=== PATIENT | female | born 2005 | race Two or more races ===

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

== ENCOUNTER 2024-03-06 22:38 | Emergency (ER) | payer OTHER, SELFPAY ==
--- NOTE | 2024-03-06 | ECG_ITS ---
Test Reason : SYNCOPE Blood Pressure : / mmHG Vent. Rate : 077 BPM Atrial Rate : 077 BPM P-R Int : 132 ms QRS Dur : 080 ms QT Int : 366 ms P-R-T Axes : 002 066 004 degrees QTc Int : 414 ms Sinus rhythm with sinus arrhythmia Otherwise normal ECG When compared with ECG of 02-OCT-2019 13:50, No significant changes seen Referred By: Generic ED Physician Electronically Signed By:INÉS JOHN MD
[2024-03-06 22:41] VITALS: BP 152/80; PULSE 86; RESP 14
--- NOTE | 2024-03-06 22:56 | ED.GENADULT ---
HPI - General Adult General Chief complaint: Syncope Stated complaint: syncope Time Seen by Provider: 03/06/24 22:56 Source: patient Mode of arrival: ambulatory Limitations: no limitations History of Present Illness HPI narrative: Patient is a 18-year-old female with history of GERD, anxiety and depression presenting to the emergency department after episode of syncope prior to arrival. States that she felt lightheaded for the past several hours. States she then felt nauseous and went to the bathroom to vomit but became lightheaded so she laid down on the ground where she had a syncopal episode. She denies any head strike. States that she has had her period with heavy vaginal bleeding for the past month. 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 Was recently started on OCPs to control this on Tuesday. States she did take a test prior to starting the OCPs which was negative. She does report lower abdominal cramping. Denies any diarrhea. Denies any hematochezia or melena. Reports emesis was nonbloody, nonbilious. Denies fevers. Denies chest pain or palpitations. MD complaint: syncope Onset (ago): hour(s) Radiation: abdomen Severity: mild Quality: other (cramping) Pain Consistency: colicky Associated symptoms: nausea/vomiting Treatments prior to arrival: none Related Data Home Medications ?Medication ?Instructions ?Recorded ?Confirmed fluoxetine 10 mg tablet 20 mg PO DAILY 09/29/23 09/29/23 Previous Rx's ?Medication ?Instructions ?Recorded hydroxyzine HCl 25 mg tablet 25 mg PO Q4H PRN anxiety #30 tabs 06/30/23 omeprazole 20 mg capsule,delayed 20 mg PO DAILY #30 caps 09/29/23 release desogestrel 0.15 mg-ethinyl 1 tab PO DAILY 90 days #90 tabs 12/28/23 estradiol 0.03 mg tablet (Apri) cefuroxime axetil 500 mg tablet 500 mg PO BID #10 tabs 03/07/24 Allergies Allergy/AdvReac Type Severity Reaction Status Date / Time No Known Allergies Allergy Verified 03/06/24 22:43 Review of Systems Review of Systems: As per HPI. Yes all other systems are reviewed and are negative Constitutional: Constitutional: Reports as per HPI [facility] Past Medical History Medical History Acne vulgaris Renal calculi Surgical History No pertinent past surgical history Family History Family History Mother No problems noted. Sister No problems noted. Maternal Grandmother Breast cancer Cervical cancer Social History Social History Household Members: Family Housing: House Alcohol intake: never Patient Tobacco Use Status: Never used Tobacco Advance Directives: No Advance Directives Information Provided: Yes Do you have a plan to hurt others: No Plan service: No Current occupational status: employed Gender identity: Female Cognitive needs: No Hearing needs: No Vision needs: No Physical Exam ED Vital Signs: Vital Signs - 24 hr 03/06/24 22:41 03/07/24 00:01 03/07/24 00:01 Temperature 97.7 F Pulse Rate 86 56 73 Respiratory Rate 14 18 Blood Pressure 152/80 H 96/58 L 104/75 Pulse Oximetry 100 Oxygen Delivery Method Room Air 03/07/24 00:01 03/07/24 00:01 03/07/24 01:22 Temperature Pulse Rate 71 73 68 Respiratory Rate 16 Blood Pressure 117/64 104/75 114/59 L Pulse Oximetry 100 Oxygen Delivery Method Room Air BMI result Body Mass Index 30.0 Vital signs have been reviewed and appear to be correct. Blood pressure normal. Heart rate normal. Respiratory rate normal. Temperature normal. Oxygen saturation normal. Const General: cooperative, healthy appearing and no acute distress Orientation/consciousness: oriented to person, oriented to place, oriented to time and patient oriented x3 Limitations: no limitations [facility] Head: Yes normocephalic and Yes atraumatic Ears: external ears normal General nose exam: Normal external nose present Face and sinus: Yes face symmetric Mouth: oropharynx normal and moist mucous membranes Throat: Yes uvula midline Eyes Pupils: Equal, round and reactive pupils present Neck Neck: Yes normal visual inspection and Yes supple Resp Effort & Inspection: normal respiratory effort and able to speak in complete sentences Auscultation: clear to auscultation bilaterally Cardio Rate: regular rate Rhythm: regular rhythm Heart sounds: S1 normal heart sound present and S2 normal heart sound present GI Palpation (GI): Soft to palpation and nontender Auscultation: normoactive bowel sounds General: Yes no CVA tenderness Back/Spine/Pelvis Back: no CVA tenderness Skin General skin exam: elasticity normal and turgor normal Neuro General: oriented to person, oriented to place, oriented to time, patient oriented x3, moves all extremities, no focal motor deficits and CN's II-XI intact bilaterally Cranial nerves: Yes Equal, round and reactive pupils present Cognition (Neuro): normal cognition Extrem General: Yes full ROM, Yes no pedal edema and Yes no calf tenderness Psych Mental Status: mental status grossly normal Affect: normal affect Thought process: Normal thought process present Medications Administered Discontinued Medications Generic Name Dose Route Start Last Admin Trade Name Freq PRN Reason Stop Dose Admin Sodium Chloride 1,000 mls @ 999 mls/hr 03/07/24 00:30 03/07/24 00:38 Ns IV 03/07/24 01:30 999 mls/hr .Q1H1M HEMAL Administration Ondansetron HCl 4 mg 03/07/24 00:19 03/07/24 00:37 Ondansetron Hcl 4 Mg/2 Ml Vial IVPUSH 03/07/24 00:20 4 mg ONCE ONE Administration Medical Decision Making Medical Decision Making MDM Narrative: Patient is a 18-year-old female with history of GERD, anxiety and depression presenting to the emergency department after episode of syncope prior to arrival. On exam patient is awake, A+Ox3, VS WNL, afebrile, normal neurological exam without focal deficits, physical exam findings as above. Given reported symptoms and physical exam findings, initial differential includes anemia, cardiac arrhythmia, electrolyte abnormality, , ectopic, UTI, dehydration, orthostatic intolerance. Plan: EKG, labs, UA Labs notable for no leukocytosis, no anemia, no significant electrolyte abnormalities, mildly elevated BUN, negative HCG. IV fluids and Zofran ordered. EKG shows sinus rhythm with sinus arrhythmia and occasional PVCs. No evidence of orthostatic intolerance on orthostatic vital signs. Urinalysis notable for trace leukocytes, positive nitrites, will treat for UTI at this time. Feel patient is stable for discharge home. Return precautions discussed at bedside. All results discussed with patient and all questions answered. Instructed patient to follow-up with primary care provider. Patient verbalized understanding of and agreement with plan. Differential Diagnosis Differential Diagnoses: The differential diagnosis associated with the presentation includes As per [facility] Admission/Observation Consideration of admission/observation: Escalation of care including admission/observation considered Patient would have been admitted to the hospital had their work up had any findings where hospital admission was appropriate and their clinical presentation warranted hospital admission. Lab Data [facility] Lab Attestation statement: I reviewed the patient's lab results. As per [facility]. 03/06/24 23:27 03/06/24 23:27 Labs: Lab Results 03/06/24 03/07/24 Range/Units 23:27 01:22 WBC 6.8 (4.8-10.8) X10*3/uL RBC 4.12 L (4.20-5.50) X10*6/uL Hgb 12.1 (12.0-16.0) g/dl Hct 34.2 L (37.0-47.0) % MCV 83.0 (80.0-98.0) fL MCH 29.4 (27.0-33.0) pg MCHC 35.4 H (31.0-35.0) g/dl RDW 12.2 (11.0-16.0) % Plt Count 265 (160-400) X10*3/uL MPV 9.6 (9.4-12.3) fL Immature Gran % (Auto) 0.0 (0.0-0.4) % Neut % (Auto) 60.9 (45-73) % Lymph % (Auto) 32.8 (20-40) % Sanders % (Auto) 4.4 (2-11) % Eos % (Auto) 1.6 (0-4) % Baso % (Auto) 0.3 (0-2) % Lymph # (Auto) 2.2 (1.2-4.9) X10*3/uL Sanders # (Auto) 0.3 (0.1-1.2) X10*3/uL Eos # (Auto) 0.1 (0.0-0.4) X10*3/uL Baso # (Auto) 0.0 (0.0-0.2) X10*3/uL Abs Immat Gran (auto) 0.00 (0.00-0.03) X10*3/uL Absolute Neuts (auto) 4.2 (2.0-8.3) x10*3/uL Absolute Nucleated RBC 0.000 (0.0-0.012) X10*3/uL Nucleated RBC % (auto) 0.0 (0.0-0.2) /100WBC Sodium 140 (135-145) mmol/L Potassium 3.4 (3.3-5.1) mmol/L Chloride 109 H (96-108) mmol/L Carbon Dioxide 20 L (22-29) mmol/L Anion Gap 14 (12-20) BUN 18 H (9-16) mg/dL Creatinine 0.80 (0.5-1.4) mg/dL Estim Creat Clear Calc 119.3 Estimated GFR > 60 Random Glucose 94 (60-115) mg/dL Calcium 9.6 (8.4-10.2) mg/dL Total Bilirubin 0.4 (0.0-1.0) mg/dL AST 20 (5-31) U/L ALT 18 (0-31) U/L Alkaline Phosphatase 59 (39-117) U/L Total Creatine Kinase 83 (26-140) U/L Total Protein 8.0 (6.5-8.0) g/dL Albumin 4.7 (3.5-5.0) g/dL Lipase 16 (8-78) U/L Beta HCG, Quant < 2 mIU/mL Urine Color Yellow Urine Appearance Clear Urine pH 6.0 (5.0-9.0) Ur Specific [place] >= 1.030 H (1.005-1.025) Urine Protein Negative (Neg-Trace) mg/dL Urine Glucose (UA) Negative (Negative) mg/dL Urine Ketones 40 (Negative) mg/dL Urine Blood Negative (Negative) Urine Nitrite Positive H (Negative) Ur Leukocyte Esterase Trace H (Negative) Independent Interpretation I performed an independent interpretation of an: EKG (sinus rhythm with sinus arrhythmia, occasional PVCs, rate 77bpm, normal MA interval and QTc) External Record Review External record reviewed: Inpatient record, Office record and Outpatient record Prescription Management I considered prescription management with: Antibiotic Discharge Plan Discharge Clinical Impression: Urinary tract infection, Syncope, Dehydration Patient Disposition: Home, Self-Care Instructions: Dehydration (ED), Syncope (DC) Additional Instructions: You were evaluated in the emergency department today for syncope (fainting). Your evaluation revealed mild dehydration and you were given IV fluids in the emergency department. Your urine showed evidence of infection you are being treated with antibiotics. Please complete the full course as prescribed. Please follow-up with your primary care provider. Your labs did not show evidence of anemia. Return to the emergency department if you have additional episodes of fainting, develop chest pain, palpitations, shortness of breath, back or flank pain, fevers 100.4? F or greater, have vaginal bleeding through more than 1 pad per hour, or any other concerning symptoms. Prescriptions: New cefuroxime axetil 500 mg tablet 500 mg PO BID Qty: 10 0RF No Action hydroxyzine HCl 25 mg tablet 25 mg PO Q4H PRN (Reason: anxiety) Qty: 30 0RF Rx Instructions: Not to exceed two doses daily fluoxetine 10 mg tablet 20 mg PO DAILY omeprazole 20 mg capsule,delayed release(DR/EC) 20 mg PO DAILY Qty: 30 1RF desogestrel-ethinyl estradiol [Apri] 0.15-0.03 mg tablet 1 tab PO DAILY 90 Days Qty: 90 0RF Print Language: Bahraini
[2024-03-06 23:31] LABS: MANUAL DIFF FLAG NO
[2024-03-06 23:32] LABS: Basophils Percent Auto 0.3 % (0-2); Eosinophils Absolute Auto 0.1 X10*3/uL (0.0-0.4); Eosinophils Percent Auto 1.6 % (0-4); Hematocrit 34.2 % (37.0-47.0); Hemoglobin 12.1 g/dl (12.0-16.0); Lymphocytes Absolute Auto 2.2 X10*3/uL (1.2-4.9); Lymphocytes Percent Auto 32.8 % (20-40); Mean Corpuscular HGB Conc 35.4 g/dl (31.0-35.0); Mean Corpuscular Hemoglobin 29.4 pg (27.0-33.0); Mean Platelet Volume 9.6 fL (9.4-12.3); Monocytes Absolute Auto 0.3 X10*3/uL (0.1-1.2); Monocytes Percent Auto 4.4 % (2-11); Neutrophils Absolute Auto 4.2 x10*3/uL (2.0-8.3); Neutrophils Percent Auto 60.9 % (45-73); Platelet Count 265 X10*3/uL (160-400); Red Blood Count 4.12 X10*6/uL (4.20-5.50); Red Cell Distribution Width 12.2 % (11.0-16.0); White Blood Count 6.8 X10*3/uL (4.8-10.8)
[2024-03-06 23:56] LABS: Alanine Aminotransferase 18 U/L (0-31); Albumin Level 4.7 g/dL (3.5-5.0); Alkaline Phosphatase 59 U/L (39-117); Anion Gap 14 (12-20); Aspartate Amino Transferase 20 U/L (5-31); Bilirubin Total 0.4 mg/dL (0.0-1.0); Blood Urea Nitrogen 18 mg/dL (9-16); Calcium 9.6 mg/dL (8.4-10.2); Carbon Dioxide 20 mmol/L (22-29); Chloride 109 mmol/L (96-108); Creatinine Clr Calc Pharmacy 119.3; Estimated Glomerular Filt Rate > 60; Glucose Random 94 mg/dL (60-115); HCG Quantitative < 2 mIU/mL; Lipase 16 U/L (8-78); Potassium 3.4 mmol/L (3.3-5.1); Sodium 140 mmol/L (135-145)
[2024-03-07 00:01] VITALS: BP 104/75; BP 117/64; BP 96/58; PULSE 56; PULSE 71; PULSE 73; RESP 18; TEMP 36.5; O2SAT 100
[2024-03-07] MEDS: ondansetron HCL 4 MG/2 ML VIAL IVPUSH (00:37)
[2024-03-07] MEDS: 0.9 % Sodium Chloride 1,000 ML 999 ML IV (00:38)
[2024-03-07 01:22] VITALS: BP 114/59; PULSE 68; RESP 16; O2SAT 100
[2024-03-07 01:30] LABS: Appearance Urine Clear; Color Urine Yellow; Glucose Urine UA Negative (Negative); Leukocyte Esterase Urine Trace (Negative); Nitrite Urine Positive (Negative); Specific Gravity - Urine >= 1.030 (1.005-1.025); UMIC TRIGGER UACC YES; Urine Blood Negative (Negative); Urine Ketones 40 mg/dL (Negative); Urine Protein Negative (Neg-Trace)
[2024-03-07 01:35] LABS: Bacteria Urine 4+ (None Seen); Hyaline Casts Urine 0-2 /LPF (0-2); RBC Urine 0-2 /HPF (0-2); UACC Culture Trigger YES
[2024-03-07 02:04] VITALS: BP 114/59; PULSE 68; RESP 16; TEMP 36.9; O2SAT 100
== END 2024-03-07 02:05 | disposition home or self-care (01) ==
PROVIDERS: Registered Nurse Emergency; Emergency Provider Student in an Organized Health Care Education/Training Program
DX: N39.0 Urinary tract infection, site not specified (principal); R55 Syncope and collapse; E86.0 Dehydration; F41.9 Anxiety disorder, unspecified; Z79.899 Other long term (current) drug therapy
CPT/HCPCS: 36415; 80053; 81001; 82550; 83690; 84702; 85025; 87086; 87088; 87186; 93005; 96361; 96374; 99284; J2405

== ENCOUNTER → 2024-03-06 22:53 | Outpatient (BNV) | payer OTHER, SELFPAY | PROVIDERS: Emergency Provider Student in an Organized Health Care Education/Training Program; Visit Provider Internal Medicine Cardiovascular Disease | DX: R55 Syncope and collapse (principal); I49.8 Other specified cardiac arrhythmias | CPT/HCPCS: 93010 ==

== ENCOUNTER 2024-03-20 12:23 | Outpatient (AMB) | payer OTHER, SELFPAY ==
--- NOTE | 2024-03-20 12:34 | AM.OFFWIN_ITS ---
Intake Vital Signs 03/20/24 12:35 Height 5 ft Weight 159 lb BMI 31.0 BP 120/76 Blood Pressure Location Lt brachial Position Sitting Pulse 68 Pulse Source Pulse Oximeter Temp 97.0 F Temp Source Temporal Artery Scan Pulse Oximetry (%) 100 Oxygen Delivery Method Room Air Intake Visit Reasons: EP Strep throat? Intake Note: pt is here today for strep started 4 days ago Patient Tobacco Use Status: Never used Tobacco Allergies No Known Allergies Allergy (Verified 03/20/24 12:57) Medication List - Last Reconciled 03/20/24 by MELIA Queen cefuroxime axetil 500 mg PO BID desogestrel-ethinyl estradiol 0.15-0.03 mg (Apri) 1 tab PO DAILY 90 days fluoxetine 20 mg PO DAILY hydroxyzine HCl 25 mg PO Q4H PRN omeprazole 20 mg PO DAILY prednisone 20 mg PO BID Do you need a note to return to daycare/school/sports/work: Yes HPI HPI Comments History of Present Illness Details Patient is a 18-year-old female in today for a sick visit. Patient states for the past 5 days she has developed symptoms of sore throat, cough, chest congestion. Denies sick contacts. Has not utilized sppk-lvb-baqiwub medicine. Denies chest pain, shortness a breath, nausea, vomiting, diarrhea. [facility] Medical History Acne vulgaris Renal calculi Surgical History No pertinent past surgical history Family History Mother No problems noted. Sister No problems noted. Maternal Grandmother Breast cancer Cervical cancer Social History Household Members: Family Housing: House Alcohol intake: never Patient Tobacco Use Status: Never used Tobacco service: No Current occupational status: employed Gender identity: Female Cognitive needs: No Hearing needs: No Vision needs: No Female Reproductive History Menstrual Age of Menarche: 12 Review of Systems Const All systems reviewed & are unremarkable except as noted in HPI and below Physical Exam Vital Signs: Last Vital Signs Temp 97.0 F 03/20/24 12:35 Pulse 68 03/20/24 12:35 BP 120/76 03/20/24 12:35 Pulse Ox 100 03/20/24 12:35 Oxygen Delivery Method Room Air 03/20/24 12:35 BMI result Body Mass Index 31.0 Const Other: Appearance: Alert.? Oriented X3.? No acute distress.? Head: Normocephalic Eyes: Pupils equal, round and reactive to light.? ENT: Pharynx erythema, no exudate. TM intact and pearly guillen. +Clear nasal discharge. Neck: Normal inspection.? Neck supple.? CVS: Normal heart rate and rhythm.? Pulses normal.? Respiratory: No respiratory distress.? Breath sounds normal.? Neuro: Oriented X 3.? t Results AMB Rapid Strep AMB Rapid Strep Negative Last Edit by Melisa Porras MA on 03/20/24 12:51 Assessment & Plan Assessment & Plan (1) Upper respiratory infection: Comment: Will give patient prednisone. Patient has been instructed to rest and that she can utilize ekbp-mvo-bruqasf medications for symptom relief. Should stay well hydrated. She has been educated on signs of worsening symptoms and when to report to the walk-in or when to present to the ED. Code(s): J06.9 - Acute upper respiratory infection, unspecified Qualifiers: URI type: unspecified URI Qualified Code(s): J06.9 - Acute upper respiratory infection, unspecified Plan: Take your medications as prescribed. If you were prescribed antibiotics today, it is important that you take your medication to their entirety, do not skip any doses, do not finish them early. Follow-up with your primary care provider this week. Return to the emergency department with new or worsening symptoms. Such as fevers, chills, chest pain, shortness of breath, nausea, vomiting, dizziness, headache, vision changes, lethargy In case of emergency call 911 Plan Will call with URI swab results. Orders: Orders SARS-CoV2/FLU/RSV Today J06.9 - Acute upper respiratory infection, unspecified Medications: New prednisone 20 mg PO BID 10 tabs 0RF Coding Level of Care Code Est Pt Level 3 (55644) Diagnoses Upper respiratory tract infection, unspecified type J06.9 URI type: unspecified URI Time Spent (min) 21
[2024-03-20 12:35] VITALS: BP 120/76; PULSE 68; TEMP 36.1; O2SAT 100; BMI 31.0
== END 2024-03-20 13:32 | disposition home or self-care (01) ==
PROVIDERS: Visit Provider Nurse Practitioner Primary Care
DX: J06.9 Acute upper respiratory infection, unspecified (principal)
CPT/HCPCS: 99213

== ENCOUNTER 2024-03-20 19:45 | Outpatient (REF) | payer OTHER, SELFPAY ==
[2024-03-20 20:34] LABS: Influenza A PCR NEGATIVE (Negative); Influenza B PCR NEGATIVE (Negative); Resp Syncy Virus RNA Qual PCR NEGATIVE (Negative); SARS COV2 PCR INHOUSE NEGATIVE (Negative)
== END 2024-03-20 19:46 | disposition home or self-care (01) ==
LOC: HO.LNP 19:45
PROVIDERS: Visit Provider Nurse Practitioner Primary Care
DX: J06.9 Acute upper respiratory infection, unspecified (principal)
CPT/HCPCS: 0241U

== ENCOUNTER 2024-03-29 09:34 | Outpatient (AMB) | payer OTHER, SELFPAY ==
[2024-03-29 09:41] VITALS: BP 106/68; BMI 31.2
--- NOTE | 2024-03-29 09:41 | A.OFFVIS_ITS ---
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 She is on her 1st pill pack and now on her placebo week and has not had a withdrawal bleed after 4 days of placebo pills. She feels well on the pill and reports she is taking it without difficulty. She does report onset of headaches the 1st and 2nd week much better the 3rd week and no symptoms this week. She was recently seen in the emergency room and was dehydrated following an episode of syncope, she has had episodes of syncope in the past. She admits she was pretty dehydrated, keeping busy at work and not drinking, and overall stress levels are high. She reports moving to [place] at the end of September. Urine test is negative today. She denies any migraine or symptoms, and would like to continue with OCP's. She also has a follow-up with her provider for post ED evaluation. She denies any contraindications to control such as: migraines with aura, history of DVT or pulmonary emboli, high blood pressure, liver disease, thrombolic disorders, Lupus, +CIRILO, breast cancer, or smoking. [facility] Medical History Acne vulgaris Renal calculi Surgical History No pertinent past surgical history Family History Mother No problems noted. Sister No problems noted. Maternal Grandmother Breast cancer Cervical cancer Social History Household Members: Family Housing: House Alcohol intake: never Patient Tobacco Use Status: Never used Tobacco service: No Current occupational status: employed Gender identity: Female Cognitive needs: No Hearing needs: No Vision needs: No Female Reproductive History Menstrual Age of Menarche: 12 Date of last menstrual period: 02/12/24 control method: pills Review of Systems Const All systems reviewed & are unremarkable except as noted in HPI and below Endo Reports no additional complaints Physical Exam Vital Signs: Last Vital Signs BP 106/68 03/29/24 09:41 BMI result Body Mass Index 31.2 Const General: cooperative, healthy appearing and no acute distress Psych Appearance: well kempt Attitude: cooperative Thought process: Normal thought process present Results AMB Test Urine AMB Test Urine Negative Last Edit by AL Anna on 03/29/24 10:10 Assessment & Plan Assessment & Plan (1) Contraceptive surveillance: Code(s): Z30.40 - Encounter for surveillance of contraceptives, unspecified Qualifiers: Contraceptive type: pill Qualified Code(s): Z30.41 - Encounter for surveillance of contraceptive pills Plan Counseled regarding alternative treatment, patient prefers to stay on the current method. control hormone use warnings: go to ER if and loss of vision, blindness, severe headache, chest pain or difficulty breathing, severe abdominal pain, or any pain or swelling in an extremity. Discuss the adjustment. Usually in the 1st 3 months before the headaches start diminish, if any increase in sudden severe headache she was to go the emergency room as counseled today. Educated on headaches and triggers for headache such as dehydration and some literature was provided to help support education on migraine prevention to include sleep hygiene, diet, hydration and stress reduction. Report any medical changes sooner before next appointment. Return to the office in 2 months for a pill check or sooner if there is any concerns. Keep follow-up with PCP for ED follow-up regarding the syncope and dehydration. This note is constructed using voice recognition software. While every effort has been made to ensure accuracy, agricultural aircraft pilot errors may have been included. Orders: Orders AMB HCG Urine Test Today Z32.02 - Encounter for test, result negative Coding Level of Care Code Est Pt Level 3 (52493) Diagnoses Encounter for surveillance of contraceptive pills Z30.41 Contraceptive type: pill
== END 2024-03-29 10:12 | disposition home or self-care (01) ==
LOC: HO.HWS 09:34
PROVIDERS: Visit Provider Advanced Practice Midwife
DX: Z32.02 Encounter for pregnancy test, result negative (principal); Z30.41 Encounter for surveillance of contraceptive pills
CPT/HCPCS: 99213

== ENCOUNTER → 2024-03-29 09:34 | Outpatient (BNVA) | payer OTHER, SELFPAY | PROVIDERS: Visit Provider Advanced Practice Midwife | DX: Z30.41 Encounter for surveillance of contraceptive pills (principal); Z32.02 Encounter for pregnancy test, result negative | CPT/HCPCS: 81025; 99212 ==

== ENCOUNTER 2024-05-31 07:57 | Outpatient (REF) | payer OTHER, SELFPAY ==
[2024-05-31 15:31] LABS: CT PCR NOT DETECTED (Not Detect.); NG PCR NOT DETECTED (Not Detect.)
== END 2024-05-31 07:58 | disposition home or self-care (01) ==
LOC: HO.LNP 07:57
PROVIDERS: Visit Provider Advanced Practice Midwife
DX: Z30.430 Encounter for insertion of intrauterine contraceptive device (principal); Z20.2 Contact with and (suspected) exposure to infections with a predominantly sexual mode of transmission
CPT/HCPCS: 58300; 81025; 87491; 87591; J7296

== ENCOUNTER 2024-05-31 07:57 | Outpatient (AMB) | payer OTHER, SELFPAY ==
[2024-05-31 07:58] VITALS: BP 100/60; BMI 31.2
--- NOTE | 2024-05-31 07:58 | MHC.OFFVIS ---
Vital Signs 05/31/24 07:58 Height 5 ft Weight 160 lb BMI 31.2 BP 100/60 Intake Visit Reasons: 2 month pill check Intake Note: Increase in migraines with OCP Allergies No Known Allergies Allergy (Verified 05/31/24 08:04) Is last menstrual period known: Yes Last menstrual period: 05/24/24 HPI Comments Details: Patient is here for a control follow up. She has been on a pre for several months and reports migraine onset since starting this pill. She has tried Nexplanon and Depo-Provera in the past but discontinued due the amount of weight gain. She denies any migraines with aura and did not experience migraines history in the past. She is interested in a Kyleena IUD. Reports she has a menstrual cycle this week. [facility] Medical History Acne vulgaris Renal calculi Surgical History No pertinent past surgical history Family History Mother No problems noted. Sister No problems noted. Maternal Grandmother Breast cancer Cervical cancer Social History Household Members: Family Housing: House Alcohol intake: never Patient Tobacco Use Status: Never used Tobacco service: No Current occupational status: employed Gender identity: Female Cognitive needs: No Hearing needs: No Vision needs: No Female Reproductive History Menstrual Age of Menarche: 12 Date of last menstrual period: 05/24/24 control method: progestin IUCD (Kyleena IUD inserted 05/31/2024) Review of Systems Const All systems reviewed & are unremarkable except as noted in HPI and below Physical Exam Vital Signs: Last Vital Signs BP 100/60 05/31/24 07:58 BMI result Body Mass Index 31.2 Const General: cooperative, healthy appearing and no acute distress Orientation/consciousness: patient oriented x3 GI Inspection: Yes normal to inspection Palpation (GI): Soft to palpation and Other GI palpation findings present (Nontender) Rectal Exam - Female: visual inspection normal General: Yes bladder normal to palpation External Female Exam: normal appearance of the urethra Speculum Exam - Vagina: normal appearance of the vagina, normal palpation and normal vaginal discharge Speculum Exam - Cervix: normal appearance of the cervix and normal palpation Bimanual exam- vagina & uterus: normal bimanual exam, normal palpation, uterine size normal, bladder normal to palpation, normal palpation, uterine shape normal and non-tender Bimanual Exam- Adnexa, other: normal adnexae Neuro General: patient oriented x3 Office Procedures IUD Insert/Removal Details Procedure code (CPT) selection complete Contraception Insert/Removal Details Details: The patient is here today for a Kyleena IUD insertion. She was counseled on the side effects including: menstrual cycle changes, pain, infection, bleeding, or expulsion. Risks of injury to the vagina, cervix, uterus, tubes, ovaries, bowel, bladder, and any adjacent tissue, resulting in nerve damage, scarring, and pain. Risks complications for the procedure that may require other test including ultrasounds, Xray, CT or MRI scan, surgery, anesthesia, blood transfusion. A urine test was completed and was negative. She was consented for the IUD insertion and has signed the consent form. All questions were answered. IUD Insertion: The patient was placed in the dorsal lithotomy position and a sterile speculum was inserted. The procedure was completed under aseptic technique. The cervix was cleansed with a Betadine solution x 3 swabs. A single toothed tenaculum was applied to the cervix for stabilization, and the uterus was sounded to 7cm. The device was inserted and released with a gentle motion. Bleeding from the tenaculum sites and the procedure were minimal. The strings were trimmed to 3cm. All of the equipment was removed and the bimanual was normal, no tip was palpable at the cervical os. The patient tolerated the procedure well and left the office in good condition. Post IUD Insertion Care: There may be some post insertion bleeding for several days that is usually light and can turn to a light brown or pink in color. Mild cramping may occur. Nothing in the vagina including: tampons, douching or intimacy for several days. You may take an over the counter mild analgesia like Tylenol or Advil (if no allergies), per the manufacturers recommendations on dosing and frequency. Follow the directions completely. Call the office if any: fever (over 100.4), flu like symptoms, abdominal pain, worsening cramping not resolved with over the counter medications, foul smelling vaginal odor, signs of infected appearing discharge, or heavy bleeding. Use a condom for a back up method if indicated for 7 days. Always use a condom for STI prevention; IUD's are not protective against STD's. Return to the office in 4-6 weeks for IUD recheck. This note is constructed using voice recognition software. While every effort has been made to ensure accuracy, construction safety consultant errors may have been included. 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 Orders: Orders AMB HCG Urine Test Today Z32.02 - Encounter for test, result negative CT NG by PCR Today Z20.2 - Contact with and (suspected) exposure to infections with a predominantly sexual mode of transmission AMB IUD Insertion/Removal - Practice Supplied Today Z30.430 - Encounter for insertion of intrauterine contraceptive device Coding Level of Care Code Procedure Only Diagnoses Encounter for IUD insertion Z30.430 CPT Codes Details - Contraception: 01582 - Insertion ([id number])
== END 2024-05-31 09:19 | disposition home or self-care (01) ==
PROVIDERS: Visit Provider Advanced Practice Midwife
DX: Z32.02 Encounter for pregnancy test, result negative (principal); Z30.430 Encounter for insertion of intrauterine contraceptive device
CPT/HCPCS: 58300

== ENCOUNTER 2024-06-12 10:56 | Outpatient (AMB) | payer OTHER, SELFPAY ==
--- NOTE | 2024-06-12 11:01 | MHC.PC.OV ---
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 Intake Note: new patient , er visit r3cyces ago for fainting patient states it is consistent she last faint last tuesday Is last menstrual period known: Yes Last menstrual period: 06/07/24 Post menopausal: No Patient : No Allergies No Known Allergies Allergy (Verified 06/12/24 11:03) Medication List - Last Reconciled 06/12/24 by Laura Crowder, ROUTE CONTRACTOR- fluoxetine 20 mg PO DAILY hydroxyzine HCl 25 mg PO Q4H PRN Tobacco use date assessed: 06/12/24 Dental Screening Dental Screen Date: 06/12/24 Did you have a dental visit in the last 12 months?: Yes Did you have a dental problem in the last 6 months where you did not have access to dental care?: No Was dental information given to patient?: Patient has dentist HPI HPI Comments History of Present Illness Details 18-year-old female with GERD, obesity, anxiety, MDD, renal calculi, acne vulgaris, ADD, anemia, chronic low pain 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 Specialists Nephrology at [facility], cleared from routine fu. 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 She was sweaty before the onset of the syncope. Went to splash self with water. Couldnt hear, vision became blurry, she was able to sit down. States lips were white and she felt freezing. Last time this happened was on Tuesday while getting her hair done. Did have nausea @ this time. Has been drinking lots of h20 as this is what was advised @ ED. Then the same events happened as prior. Did not have to go to ED at that time. Did have an extreme headache and the shakes after the event. I reviewed the February ED visit [place] [facility]. Noted to have UTI otherwise workup negative. Denies chance of . #chronic thoracic back pain. did PT in the past with + relief. The back pain is back now. described as sharp. Off OCP. Now on IUD. Does not smoke. #MDD/ANALISA PRN hydroxyzine, last panic attack was last night. Not taking prozac daily as it makes her feel groggy and bad. Taking every third day. Anxiety is affecting her sleep. No longer active w/ counseling. Does not think this is helpful. #Denies any recurrence of renal stones, no longer active w/ Renal. #Acne controlled w/o meds. Was active w Derm in the past. #Chronic GERD. Using OTC Pepcid 40mg. If she does not take this or uses lower doses has vomiting and reflux. No longer active w/ GI # Wears glasses, overdue for Eye Exam. #Sexually active, no conern for STD. General: Well developed, well nourished, in no acute distress. Appears stated age. Head: Normocephalic, atraumatic. Eyes: Pupils are equal, round and reactive to light and accommodation. Conjunctivae are clear. Vision grossly normal. Ears: TMs clear AU, EACS WNL Nose: Patent, without discharge. Mouth: There are no ulcers or lesions noted. No inflammation, no post nasal drip, no plaques nor exudates. Neck: Supple, no adenopathy or thyromegaly. Lungs: Clear to auscultation bilaterally. No rales, rhonchi or wheeze noted. Good air flow in all estrella. Heart: Regular rate and rhythm. No murmurs, click, rubs or gallops are noted. Abdomen: Bowel sounds present in all quadrants. The abdomen is soft, nontender, with no masses or organomegaly noted. No hernias are noted. Musculoskeletal: Joints are nontender, without swelling, redness, or effusions. Range of motion is observed to be normal. Pulses: Peripheral pulses are equal and palpable bilaterally. Extremities: No clubbing, cyanosis nor edema is noted. Neurologic: Gait and station normal. Cranial Nerves 2-12 intact. Motor strength grossly symmetrical and intact. No sensory loss. Balance normal. Skin: No rashes, ulcers, or lesions noted. Turgor is good. Skin color is good. Hair and nails are without abnormalities. Port wine stain mid low back Psych: Normal eye contact, affect and mood appropriate, and normal interactions. Patient is alert and appropriate to context. Plan: Labs and holter to monitor cause for recurrent syncope. If unrevealing, will order tilt table. RX for pepcid 40mg QHS Refer to [facility] for + thrive screen; declined counseling. Stop prozac as this is causing side effects. Cont prn hydroxyzine. Start Buspar 5mg po BID, RTO 6 weeks to fu on effectivness along w/ your testing results. Tdap @ next visit. 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 1. Little interest or pleasure in doing things: nearly every day 2. Feeling down, depressed, or hopeless: several days 3. Trouble falling or staying asleep, or sleeping too much: nearly every day 4. Feeling tired or having little energy: more than half the days 5. Poor appetite or overeating: more than half the days 6. Feeling bad about yourself - or that you are a failure or have let yourself or your family down: several days 7. Trouble concentrating on things, such as reading the newspaper or watching television: not at all 8. Moving or speaking so slowly that other people could have noticed. Or the opposite - being so fidgety or restless that you have been moving around a lot more than usual: not at all 9. Thoughts that you would be better off or of hurting yourself in some way: not at all Total score: 12 Depression Screening Interpretation: Positive Depression Screening Follow-up: Existing condition and New Medication prescribed Depression Screening Done: Yes 07940 - PHQ-9 Billing: Yes Source: Developed by Drs. Jorge Solares, Mis Dooley, Justin Brito and colleagues, with an educational jimbo from [employer]. Thrive Questionnaire Date Thrive assessed: 06/12/24 I am a: Patient What is your living situation today?: I have a steady place to live Within the past 12 months, did the food you bought not last and you didn't have the money to get more?: Sometimes True Within the past 12 months, did you worry whether your food would run out before you got money to buy more?: Often true Do you have trouble paying for medicines?: No Do you have trouble getting transportation to medical appointments?: No Do you have trouble paying your heating and electricity bill?: No Do you have trouble taking care of your child, family member or friend?: No Do you have trouble with day-to-day activities such as bathing, preparing meals, shopping, managing finances, etc.?: No Are you currently unemployed and looking for a job?: No Are you interested in more education?: Yes Please select the resources that you would like help with: Food and Education Currently or been in a relationship where the following occur: No concerns reported THRIVE Score: 2 AUDIT C Alcohol Use Questionnaire (AUDIT-C) 1. How often do you have a drink containing alcohol?: Never 3. How often do you have six or more drinks on one occasion?: Never Total Score: 0 Score Reviewed/Action Taken: Yes ANALISA-7 AMB Questionnaire ANALISA-7 Date ANALISA - 7 assessed: 06/12/24 Feeling nervous, anxious, or on edge: 3 = Nearly every day Not being able to stop or control worryin = Nearly every day Worrying too much about different things: 3 = Nearly every day Trouble relaxin = More than half the days Being so restless that it is hard to sit still: 0 = Not at all Becoming easily annoyed or irritable: 3 = Nearly every day Feeling afraid as if something awful might happen: 2 = More than half the days Total ANALISA-7 score (0-4 normal; 5-9 mild; 10-14 moderate; 15-21 severe): 16 Source: Developed by Drs. Jorge Solares, Mis Dooley, Justin Brito and colleagues, with an educational jimbo from [employer]. ANALISA-7 Assessment Billing ANALISA-7 Assessment Tool: ANALISA-7 Assessment 13004 Physical exam (Primary Care) Vital Signs: Last Vital Signs Temp 98.0 F 06/12/24 11:06 Pulse 80 06/12/24 11:06 Resp 18 06/12/24 11:06 BP 96/60 06/12/24 11:06 BMI result Body Mass Index 31.7 BMI Assessment/Plan discussion: High BMI High, discussed plan: lifestyle Tobacco/Smoking Status: Tobacco use Status Tobacco use date assessed 06/12/24 06/12/24 11:09 Patient Tobacco Use Status Never used Tobacco 06/12/24 11:09 e-Cigarette/Vaping Use Never Used 06/12/24 11:09 Depression Screening Interpretation: Positive Depression Screening Follow-up: Existing condition and New Medication prescribed Thrive Assessment: Date of Thrive Assessment Date Thrive assessed 06/12/24 06/12/24 11:20 Currently or been in a relationship where the following occur: No concerns reported Assessment and Plan Assessment & Plan (1) Encounter for general adult medical examination without abnormal findings: Code(s): Z00.00 - Encounter for general adult medical examination without abnormal findings (2) Syncope and collapse: Code(s): R55 - Syncope and collapse (3) MDD (major depressive disorder), recurrent episode: Code(s): F33.9 - Major depressive disorder, recurrent, unspecified Qualifiers: Major depression episode severity: moderate Qualified Code(s): F33.1 - Major depressive disorder, recurrent, moderate (4) ANALISA (generalized anxiety disorder): Code(s): F41.1 - Generalized anxiety disorder (5) GERD (gastroesophageal reflux disease): Code(s): K21.9 - Gastro-esophageal reflux disease without esophagitis Qualifiers: Esophagitis presence: without esophagitis Qualified Code(s): K21.9 - Gastro-esophageal reflux disease without esophagitis (6) BMI 31.0-31.9,adult: Code(s): Z68.31 - Body mass index [BMI] 31.0-31.9, adult (7) Renal calculi: Comment: Followed by [facility] in [facility] past; no recent issues. Code(s): N20.0 - Calculus of kidney (8) Encounter for screening involving social determinants of health (SDoH): Code(s): Z13.9 - Encounter for screening, unspecified (9) Encounter for general adult medical examination with abnormal findings: Code(s): Z00.01 - Encounter for general adult medical examination with abnormal findings Plan: Total time spent caring for the patient today was 18 minutes. An additional [] was spent addressing the problem(s) noted at todays visit. This includes time spent before the visit reviewing the chart, time spent during the visit, and time spent after the visit on documentation Orders: Orders Complete Blood Count no Diff Today R55 - Syncope and collapse IRON PROFILE Today R55 - Syncope and collapse TSH reflex Free T4 Today R55 - Syncope and collapse Vitamin B12 and Folate Today R55 - Syncope and collapse Ferritin Today R55 - Syncope and collapse UA CC w/rflx Micro + Cult Today R55 - Syncope and collapse D Dimer High Sensitivity Today R55 - Syncope and collapse Comprehensive [place]. Panel Fast Today R55 - Syncope and collapse Hemoglobin A1c Today R55 - Syncope and collapse Lipid Panel Today R55 - Syncope and collapse ECG 3 day holter monitor Today R55 - Syncope and collapse Referrals Nurse Navigator Referral Z13.9 - Encounter for screening, unspecified Medications: New famotidine 40 mg PO BEDTIME 90 tabs 2RF buspirone 5 mg PO BID 60 tabs 1RF Patient Instructions: Walk-In Care (Urgent Care): We Make it Easy Walk-in for urgent medical issues such as: ? Seasonal Allergies ? Insect Bites ? Cough ? Diarrhea ? Acute Asthma Attacks ? Back, Knee or Joint Pain ? Ear Infection ? Fever without a Rash ? Headaches ? Nausea ? [place] [facility], Rash or Skin Irritation ? Sore Throat ? Sports Physicals ? Vomiting Most insurances are accepted. Patients do not need to be part of the [facility] to seek care at the walk-in clinic. Locations [facility], [place] [address] ? [phone] [facility] Walk-In Care in [place] provides services to ages 18 and over. Open Tuesday-Tuesday: 8 a.m. to 5 p.m. and Tuesday: 9 a.m. to 3 p.m.* *Hours may vary due to staffing availability. To confirm Walk-In Care hours in [place], please call [phone]. [address] [place] [address] ? [phone] [facility] Walk-In Care in [place] provides services to ages 12 and over. Open Tuesday-Tuesday: 8 a.m. to 5 p.m. Hours may vary due to staffing availability. To confirm Walk-In Care hours in [place], please call [phone]. LABORATORY SERVICES: [facility] ? Primary Location [address] [place] [address] Tuesday through Tuesday 6:00 AM ? 5:00 PM Tuesday 7:00 AM ? 11:00 AM* [phone] The [facility] is centrally located near the front entrance of the [facility] for easy outpatient access. Convenient parking is provided for outpatients. *Hours may vary due to staffing availability. To confirm Laboratory hours for any location, please call [phone]. Offsite Location For your convenience, we offer offsite laboratory draw stations at the following locations: [address] [place] [address] ? [address], [address] Tuesday through Tuesday 7:30 AM ? 1:00 PM* [phone] *Hours may vary due to staffing availability. To confirm Laboratory hours for any location, please call [phone]. [place] ? [address] Tuesday through Tuesday 6:00 AM ? 3:30 PM* Tuesday 6:30 AM ? 3 PM* [phone] *Hours may vary due to staffing availability. To confirm Laboratory hours for any location, please call [phone] [place] [address] Tuesday through Tuesday 7:30 AM ? 4:00 PM* [phone] *Hours may vary due to staffing availability. To confirm Laboratory hours for any location, please call [phone] [place] [address] Tuesday through 9:00 AM ? 4:00 PM* *Hours may vary due to staffing availability. To confirm Laboratory hours for any location, please call [phone]. Appointments are not necessary. Walk-ins are welcome. Like all the departments throughout the [facility], our Lab undergoes frequent reviews to ensure the quality and accuracy of test results, and our staff takes special pride in its status as a nationally accredited facility. Patient Portal: ONE PATIENT. ONE RECORD. BETTER CARE. [facility] has a fully integrated, cutting-edge mobile electronic health information system that has revolutionized the way we care for our patients and manage our organization. This system improves communication and coordination enabling us to provide safe, higher-quality care, and an overall positive experience for staff and patients. Our first priority, as always, is to deliver the highest quality care possible. The system is running in the background supporting that priority. This portal is for all [facility] services and practices. If you are experiencing any technical difficulties with enrolling or logging into the Patient Portal please complete the [facility] Patient Portal Technical Support Form. [facility] now offers a new secure on-line interactive tool for patients to review their health information ? ?Patient Portal. This interactive web portal will enable patients and their families to take an active role in their care by providing easy, secure access to their health information via the internet. The Patient Portal provides patients with instant access to their health information, including laboratory results, medications, allergies, demographic information, visit history, and more. In addition to managing their own care, parents and health care proxies with authorized consent will appreciate the ability to access the records of those individuals for whom they provide care. Please note: if you wish to gain access (Proxy) to another patient?s portal, you will be required to come to the Medical Records Department in person at [facility]. Both the patient giving proxy access and the proxy will need to provide photo identification and complete the appropriate authorization. The Patient Portal also allows track their appointments online. The [facility] Patient Portal also saves patients time by allowing them to submit updates to their demographic and contact information prior to their visits. Portal email notifications will also alert patients to any new activity on their portal, such as test results and new appointments. In order to initially enroll in the [facility] Patient Portal, you will need to enter some required information including the following: your [facility] Medical Record number your personal home email address name date of Please note: In order to enroll in the [facility] Patient Portal, we need to have your email address on file in your electronic medical record. ?The email address needs to be specific for one person (yourself) in order for your Portal enrollment to be successful. ?You can update your email address in person with our Registration staff when you are registering for a hospital visit. ?Otherwise, you will need to come to the Health Information Management (Medical Records) Department at [facility]. ?We are open from Tuesday ? Tuesday from 7:30 a.m. ? 4:30 p.m. ?You will be required to present a photo id. Once you have successfully enrolled in the Patient Portal, you will receive a one-time user id and password for the Portal, sent to your email address. ?This will allow you to log into the Patient Portal within 99 hrs and reset your own logon id and password, and define personal security questions. ?Once your permanent login and password have been set, you can log into the [facility] Patient Portal at any time via the blue button above or from the Portal Logon button on any page of the [facility] website. [facility] encourage all of our patients to enroll in Patient Portal as it presents a valuable opportunity for patients and their families to actively participate in their care and stay healthy Welcome to [facility]. ?We look forward to working with you. Health screenings for women You should visit your health care provider from time to time, even if you are healthy. The purpose of these visits is to: Screen for medical issues Assess your risk for future medical problems Encourage a healthy lifestyle Update vaccinations and other preventive care services Help you get to know your provider in case of an illness Information Even if you feel fine, you should still see your provider for regular checkups. These visits can help you avoid problems in the future. For example, the only way to find out if you have high blood pressure is to have it checked regularly. High blood sugar and high cholesterol levels also may not have any symptoms in the early stages. A simple blood test can check for these conditions. There are specific times when you should see your provider or receive specific health screenings. The [place] Preventive Services Task Force publishes a list of recommended screenings. Below are screening guidelines for women ages 18 to 39. BLOOD PRESSURE SCREENING Your blood pressure should be checked at least once every 3 to 5 years if: Your blood pressure is in the normal range (top number less than 120 mm Hg and bottom number less than 80 mm Hg) You don't have risk factors for high blood pressure Ask your provider if you need your blood pressure checked more often if: The top number is 120 to 129 mm Hg or the bottom number is 70 to 79 mm Hg You have diabetes, heart disease, kidney problems, are overweight, or have certain other health conditions You have a first-degree relative with high blood pressure You are Black You had high blood pressure during a If the top number is 130 mm Hg or greater or the bottom number is 80 mm Hg or greater, this is considered stage 1 hypertension. Schedule an appointment with your provider to learn how you can reduce your blood pressure. Watch for blood pressure screenings in your area. Ask your provider if you can stop in to have your blood pressure checked. BREAST CANCER SCREENING Experts do not agree about the benefits of breast self-exams in finding breast cancer or saving lives. Talk to your provider about what is best for you. A screening mammogram is not recommended for most women under age 40. Your provider may discuss and recommend mammograms, MRI scans, or ultrasounds if you have an increased risk for breast cancer, such as: A mother or sister who had breast cancer at a young age (most often starting screening earlier than the age the close relative was diagnosed) You carry a high-risk genetic marker CERVICAL CANCER SCREENING Cervical cancer screening should start at age 21 years unless your provider advises otherwise. After the first test: Women ages 21 through 29 should have a Pap test every 3 years. Exoprts do not agree on whether HPV testing is recommended for this age group. Women ages 30 through 65 should be screened with either a Pap test every 3 years or the HPV test every 5 years or both tests every 5 years (called cotesting ). Women who have been treated for precancer (cervical dysplasia) should continue to have Pap tests for 20 years after treatment or until age 65, whichever is longer. If you have had your uterus and cervix removed (total hysterectomy), and you have not been diagnosed with cervical cancer or precancer (high grade cervical neoplasia), you do not need cervical cancer screening. CHOLESTEROL SCREENING Cholesterol screening should begin at: Age 45 for women with no known risk factors for coronary heart disease Age 20 for women with known risk factors for coronary heart disease Repeat cholesterol screening should take place: Every 5 years for women with normal cholesterol levels More often if changes occur in lifestyle (including weight gain and diet) More often if you have diabetes, heart disease, kidney problems, or certain other conditions DIABETES SCREENING You should be screened for diabetes starting at age 35 and then repeated every 3 years if you have no risk factors for diabetes. Screening may need to start earlier and be repeated more often if you have other risk factors for diabetes, such as: You have a first degree relative with diabetes. You are overweight or have obesity. You have high blood pressure, prediabetes, or a history of heart disease. Screening for diabetes should be done if you are planning to become and you are overweight and have other risk factors such as high blood pressure. DENTAL EXAM Go to the dentist once or twice every year for an exam and cleaning. Your dentist will evaluate if you need more frequent visits. EYE EXAM Have an eye exam every 5 to 10 years before age 40. If you have vision problems, have an eye exam every 2 years or more often if recommended by your provider. You should have an eye exam that includes an examination of your retina (back of your eye) at least every year if you have diabetes. IMMUNIZATIONS Commonly needed vaccines include: Flu shot: get one every year. COVID-19 vaccine: ask your provider what is best for you. Tetanus-diphtheria and acellular pertussis (Tdap) vaccine: have one at or after age 19 as one of your tetanus-diphtheria vaccines if you did not receive it as an adolescent. Tetanus-diphtheria: have a booster (or Tdap) every 10 years. Varicella vaccine: receive 2 doses if you never had chickenpox or the varicella vaccine. Hepatitis B vaccine: receive 2, 3, or 4 doses, depending on your exact circumstances. Measles, mumps, and rubella (MMR) vaccine: receive 1 to 2 doses if you are not already immune to MMR. Your provider can tell you if you are immune. Ask your provider about the human papillomavirus (HPV) vaccine if: You have not received the HPV vaccine in the past You have not completed the full vaccine series (you should catch up on this shot) Ask your provider if you should receive other immunizations if you have certain health problems that increase your risk for some diseases such as pneumonia. INFECTIOUS DISEASE SCREENING Women who are sexually active should be screened for chlamydia and gonorrhea up until age 25. Women 25 years and older should be screened for chlamydia and gonorrhea if at high risk. Screening for hepatitis C: All adults ages 18 to 79 should get a one-time test for hepatitis C. people should be screened at every . Screening for human immunodeficiency virus (HIV): All people ages 15 to 65 should get a one-time test for HIV. Depending on your lifestyle and medical history, you may also need to be screened for infections such as syphilis and HIV, as well as other infections. PHYSICAL EXAM All adults should visit their provider from time to time, even if they are healthy. The purpose of these visits is to: Screen for disease Assess your risk of future medical problems Encourage a healthy lifestyle Update your vaccinations and other preventive care services Maintain a relationship with a provider in case of an illness Your height, weight, and BMI should be checked at every exam. During your exam, your provider may ask you about: Depression and anxiety Diet and exercise Alcohol and tobacco use Safety issues, such as using seat belts, smoke detectors, and intimate partner violence Your medicines and risk for interactions SKIN SELF-EXAM Your provider may check your skin for signs of skin cancer, especially if you're at high risk, such as if you: Have had skin cancer before Have close relatives with skin cancer Have a weakened immune system OTHER SCREENING Talk with your provider about colon cancer screening if you have a strong family history of colon cancer or polyps, or if you have had inflammatory bowel disease or polyps yourself. Routine bone density screening of women under 40 is not recommended. Coding Level of Care Code New Pt Level 2 (27929) New Pt Prev Care 18-39yr(69831 Diagnoses Encounter for general adult medical examination without abnormal findings Z00.00 Syncope and collapse R55 Moderate episode of recurrent major depressive disorder F33.1 Major depression episode severity: moderate ANALISA (generalized anxiety disorder) F41.1 Gastroesophageal reflux disease without esophagitis K21.9 Esophagitis presence: without esophagitis BMI 31.0-31.9,adult Z68.31 Renal calculi N20.0 Encounter for screening involving social determinants of health (SDoH) Z13.9 Encounter for general adult medical examination with abnormal findings Z00.01 Additional Codes ANALISA-7 Assessment Billing - ANALISA-7 Assessment Tool: ANALISA-7 Assessment 41004 ([id number])
[2024-06-12 11:06] VITALS: BP 96/60; PULSE 80; RESP 18; TEMP 36.7; BMI 31.7
== END 2024-06-12 11:46 | disposition home or self-care (01) ==
PROVIDERS: PCP Nurse Practitioner Family; Visit Provider Nurse Practitioner Family
DX: Z00.00 Encounter for general adult medical examination without abnormal findings (principal); R55 Syncope and collapse; F33.1 Major depressive disorder, recurrent, moderate; F41.1 Generalized anxiety disorder; K21.9 Gastro-esophageal reflux disease without esophagitis; Z68.31 Body mass index [BMI] 31.0-31.9, adult; N20.0 Calculus of kidney
CPT/HCPCS: 96127; 99385

== ENCOUNTER 2024-06-12 12:14 | Outpatient (REF) | payer OTHER, SELFPAY ==
[2024-06-12 16:03] LABS: Appearance Urine Clear; Color Urine Yellow; Glucose Urine UA Negative (Negative); Leukocyte Esterase Urine Trace (Negative); Nitrite Urine Negative (Negative); PH 6.5 (5.0-9.0); UMIC TRIGGER UACC YES; Urine Blood Negative (Negative); Urine Ketones Negative (Negative); Urine Protein Negative (Neg-Trace)
[2024-06-12 16:09] LABS: Bacteria Urine 1+ (None Seen); Hyaline Casts Urine 0-2 /LPF (0-2); RBC Urine 0-2 /HPF (0-2); UACC Culture Trigger YES
[2024-06-12 17:01] LABS: Hematocrit 39.3 % (37.0-47.0); Hemoglobin 13.4 g/dl (12.0-16.0); Mean Corpuscular HGB Conc 34.1 g/dl (31.0-35.0); Mean Corpuscular Hemoglobin 29.5 pg (27.0-33.0); Mean Corpuscular Volume 86.4 fL (80.0-98.0); Mean Platelet Volume 10.1 fL (9.4-12.3); Platelet Count 300 X10*3/uL (160-400); Red Blood Count 4.55 X10*6/uL (4.20-5.50); Red Cell Distribution Width 12.4 % (11.0-16.0); White Blood Count 4.2 X10*3/uL (4.8-10.8)
[2024-06-12 17:11] LABS: Estimated Average Glucose 97 mg/dL
[2024-06-12 17:49] LABS: D Dimer High Sensitivity 280 NG/ML
[2024-06-12 18:27] LABS: Alanine Aminotransferase 18 U/L (0-31); Albumin Level 4.8 g/dL (3.5-5.0); Alkaline Phosphatase 57 U/L (39-117); Anion Gap 14 (12-20); Aspartate Amino Transferase 19 U/L (5-31); Bilirubin Total 0.5 mg/dL (0.0-1.0); Blood Urea Nitrogen 13 mg/dL (9-16); Calcium 10.6 mg/dL (8.4-10.2); Carbon Dioxide 24 mmol/L (22-29); Chloride 104 mmol/L (96-108); Cholesterol 243 mg/dL (<200); Estimated Glomerular Filt Rate > 60; Glucose Fasting 71 mg/dL (60-99); HDL Cholesterol 55 mg/dL (>40); Iron 79 mcg/dL (30-160); LDL Cholesterol Calculated 169 mg/dL (<100); Percent Iron Saturation 24 % (15-50); Potassium 4.2 mmol/L (3.3-5.1); Sodium 138 mmol/L (135-145); Total Iron Binding Capacity 326 mcg/dL (228-428); Total Protein 8.4 g/dL (6.5-8.0); Triglycerides 95 mg/dL (<150); Unsaturated Iron Binding 247 ug/dL
[2024-06-12 18:34] LABS: Ferritin 75 ng/mL (10-122); TSH reflex Free T4 0.74 uIU/mL (0.32-4.0)
[2024-06-12 18:49] LABS: Vitamin B12 463 pg/mL (200-900)
== END 2024-06-12 12:15 | disposition home or self-care (01) ==
LOC: HO.WFDLDS 12:14
PROVIDERS: Visit Provider Nurse Practitioner Family
DX: R55 Syncope and collapse (principal)
CPT/HCPCS: 36415; 80053; 80061; 81001; 81003; 82607; 82728; 82746; 83036; 83540; 84443; 85027; 85379; 87086; 87088; 87186

== ENCOUNTER 2024-06-15 09:26 | Outpatient (REF) | payer OTHER, SELFPAY ==
--- NOTE | ~2024-06-15 | CT_ITS ---
EXAMINATION: CT ANGIOGRAM OF THE CHEST WITH AND WITHOUT CONTRAST (CT PULMONARY ANGIOGRAM FOR PE) CLINICAL INFORMATION: Reason for Exam R79.89 - Other specified abnormal findings of blood chemistry COMPARISON: None available. TECHNIQUE: Prior to contrast administration, noncontrast localization images were obtained. Subsequently, multidetector volumetric imaging was performed from the thoracic inlet to below the diaphragms following the administration of 65 mL Omnipaque 350 intravenous contrast. No contrast reaction reported Sagittal, coronal, and MIP oblique sagittal reformatted images were obtained on the CT workstation, uploaded to PACS, and reviewed. This CT examination was performed using dose optimization techniques as appropriate, variously including the following: *Automated exposure control *Adjustment of mA and/or kV according to patient size (this includes techniques or standardized protocols for targeted exams where dose is matched to indication/reason for exam; i.e. extremities or head) *Use of iterative reconstruction technique Total exam dose-length product 113 mGy-cm FINDINGS: QUALITY OF STUDY/CONTRAST BOLUS: Satisfactory. PULMONARY ARTERIES: No pulmonary emboli. THORACIC AORTA: No aneurysm. LUNG: No suspicious pulmonary nodule. No focal consolidation. Central airways are patent. PLEURA: No pleural effusion or pneumothorax. MEDIASTINUM: Normal heart size. No pericardial effusion. No hilar or mediastinal lymphadenopathy. No evidence of septal bowing or right heart strain. CORONARY ARTERY CALCIFICATION: None visualized on this study. CHEST WALL/AXILLA: No axillary or internal mammary lymphadenopathy. OSSEOUS STRUCTURES: No destructive bone lesions. UPPER ABDOMEN: Unremarkable. No reflux of contrast into the hepatic veins to suggest elevated right heart pressures. CT/CT angio chest PE protocol IMPRESSION: No evidence of pulmonary embolus. No acute intrathoracic abnormality. VTE: negative
[2024-06-15] MEDS: iohexoL 350 MG/ML 100 ML INFUS..BTL 65 ML IV (10:17)
== END 2024-06-15 09:27 | disposition home or self-care (01) ==
LOC: HO.CT 09:26
PROVIDERS: PCP Nurse Practitioner Family; Visit Provider Nurse Practitioner Family
DX: R79.89 Other specified abnormal findings of blood chemistry (principal); R55 Syncope and collapse
CPT/HCPCS: 71275; Q9967

== ENCOUNTER → 2024-06-25 07:14 | Outpatient (REF) | payer OTHER, SELFPAY ==
--- NOTE | 2024-06-25 07:17 | HM_ITS ---
* Total monitoring time 3 days. * Underlying rhythm is sinus with an average rate of 82/Min. * Rare supraventricular ectopy. * No significant pauses or AV blocks. * Patient marker used once in association with sinus rhythm. * No diary events. MTDD
== END ==
LOC: HO.CARD 07:14
PROVIDERS: PCP Nurse Practitioner Family; Visit Provider Nurse Practitioner Family
DX: R55 Syncope and collapse (principal)
CPT/HCPCS: 93242

== ENCOUNTER → 2024-06-25 07:17 | Outpatient (BNV) | payer OTHER, SELFPAY | PROVIDERS: PCP Nurse Practitioner Family; Visit Provider Internal Medicine | DX: I47.10 Supraventricular tachycardia, unspecified (principal) | CPT/HCPCS: 93244 ==

== ENCOUNTER 2024-09-19 03:35 | Emergency (ER) | payer OTHER, SELFPAY ==
[2024-09-19] VITALS (7 sets, daily range): BP systolic 93–124; BP diastolic 46–75; PULSE 55–65; RESP 15–20; TEMP -17.7–36.5; O2SAT 0–100; BMI 30.4
--- NOTE | ~2024-09-19 | CT_ITS ---
EXAMINATION: CT ABDOMEN AND PELVIS WITHOUT CONTRAST CLINICAL INFORMATION: Flank pain. COMPARISON: None available. TECHNIQUE: Multidetector volumetric imaging was performed from the superior aspect of the liver through the pubic symphysis. Sagittal and coronal reformatted images were obtained on the technologist's workstation. This CT examination was performed using dose optimization techniques as appropriate, variously including the following: *Automated exposure control *Adjustment of mA and/or kV according to patient size (this includes techniques or standardized protocols for targeted exams where dose is matched to indication/reason for exam; i.e. extremities or head) *Use of iterative reconstruction technique DLP: 128 mGy-cm FINDINGS: LUNG BASES: The visualized lung bases are unremarkable. LIVER, GALLBLADDER, AND BILIARY TREE: The liver is normal in size, shape, and attenuation. No focal hepatic lesion or biliary ductal dilatation is present. The gallbladder is unremarkable with no evidence of radiopaque gallstones, gallbladder wall thickening, or obvious pericholecystic inflammatory changes. PANCREAS: Unremarkable. SPLEEN: Unremarkable. ADRENAL GLANDS: Unremarkable. KIDNEYS AND URETERS: The kidneys are normal in size, shape, and attenuation. There are scattered bilateral 1 to 2 mm renal calculi. There is no hydronephrosis. BLADDER: Unremarkable. GASTROINTESTINAL TRACT: There are fluid-filled distal small bowel loops and fluid within the right colon. The appendix is visualized and is within normal limits. ABDOMINAL WALL: No significant hernia is appreciated. LYMPH NODES: Normal. VASCULAR: Unremarkable. PELVIC VISCERA: Unremarkable. OSSEOUS STRUCTURES: Unremarkable. CT/CT abdomen pelvis wo IV con IMPRESSION: 1. Fluid-filled distal small bowel loops and fluid within the right colon. This may be seen with enteritis. 2. Bilateral 1 to 2 mm renal calculi. No hydronephrosis. Fleischner guidelines were followed. Electronically signed by: Alex Fields MD 09/19/2024 06:58 AM [facility]
[2024-09-19] MEDS: ondansetron HCL 4 MG/2 ML VIAL IVPUSH (04:24)
--- NOTE | 2024-09-19 04:28 | ED.ABDPAIN ---
HPI - Abdominal Pain General Chief Complaint: Abdominal Pain Stated Complaint: right side abdominal pain Time Seen by Provider: 09/19/24 04:21 Source: patient Mode of arrival: ambulatory Limitations: no limitations History of Present Illness ED Provider: Dr. Carly Ziegler HPI narrative: Patient comes to the emergency room complaining of 3 days of intermittent right flank pain. Patient states that approximately 1/2 hour ago, the patient became very intense and could not tolerate it anymore. Patient states that she has had kidney stones in the past, they had to do a lithotripsy. Patient states that she has been having hematuria, no dysuria. Patient denies fever chills Related Data Previous Rx's ?Medication ?Instructions ?Recorded hydroxyzine HCl 25 mg tablet 25 mg PO Q4H PRN anxiety #30 tabs 06/30/23 buspirone 5 mg tablet 5 mg PO BID #60 tabs 06/12/24 famotidine 40 mg tablet 40 mg PO BEDTIME #90 tabs 06/12/24 sulfamethoxazole 800 1 tab PO BID 3 days #6 tabs 06/15/24 mg-trimethoprim 160 mg tablet (Bactrim DS) cefuroxime axetil 250 mg tablet 250 mg PO BID #10 tabs 09/19/24 nitrofurantoin 100 mg PO ONCE #14 caps 09/19/24 monohydrate/macrocrystals 100 mg capsule (Macrobid) Allergies Allergy/AdvReac Type Severity Reaction Status Date / Time No Known Allergies Allergy Verified 09/19/24 03:52 Review of Systems Review of Systems Constitutional : No Weight loss, No Fever, No Chills, No Night Sweats, No Fatigue, No Malaise ENT/Mouth : No Hearing loss, No Ear Pain, No Nasal Congestion, No Sinus Pain, No Hoarseness, No sore throat, No Rhinorrhea, No Swallowing Difficulty Eyes: No Eye Pain, No Swelling, No Redness, No Foreign Body, No Discharge, No Vision Changes Cardiovascular : No Chest Pain, No SOB, No Dyspnea on Exertion, No Orthopnea, No Edema, No Palpitations Respiratory : No Cough, No Sputum, No Wheezing, No Smoke Exposure, No Dyspnea Gastrointestinal : Complaining of nausea and vomiting, No Diarrhea, No Constipation, complaining of right flank pain Genitourinary : no irregular bleeding, No Dysuria, No Urinary Frequency, No Hematuria, No Urinary Incontinence, No Urgency, No Flank Pain, No Urinary Flow Changes, No Hesitancy Musculoskeletal : No joint pain, No Myalgias, No Joint Swelling Skin : No Skin Lesions, No rash Neuro : No Weakness, No Numbness, No Paresthesias, No Loss of Consciousness, No Dizziness, No Headache Psych : No Anxiety/Panic, No Depression, No SI/HI/AH/VH, No Social Issues, Heme/Lymph: No Bruising, No Bleeding,No Lymphadenopathy Endocrine : No Polyuria, No Polydipsia, No Temperature Intolerance [facility] Past Medical History Medical History Bipolar 1 disorder Sinusitis Renal calculi Overweight for pediatric patient Anxiety and depression Upper respiratory infection Acne vulgaris Surgical History No pertinent past surgical history Family History Family History Mother Diabetes Maternal Grandmother Breast cancer Cervical cancer Diabetes Social History Social History Household Members: Family Housing: House Alcohol intake: never Patient Tobacco Use Status: Never used Tobacco Smoked in Last 30 Days: No e-Cigarette/Vaping Use: Never Used Second Hand Smoke Exposure: No Use of substances other than those prescribed or required for medical reasons: No Substance Use Type: Marijuana Advance Directives: No Advance Directives Information Provided: Yes Do you have a plan to hurt others: No Plan Patient : No service: No Current occupational status: employed 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 Oriented X3. Patient seems uncomfortable Eyes: Pupils equal, round and reactive to light. ENT: Pharynx normal. Neck: Normal inspection. Neck supple. No lymph nodes noted. No crepitus CVS: Normal heart rate and rhythm. Pulses normal. Normal S1 and S2 Respiratory: No respiratory distress. Breath sounds normal. No Wheezing. No rales Abdomen: Soft and nontender. No rigidity. No distention. CVA tenderness on the right Skin: Skin warm and clammy. Pale. Normal skin turgor. Extremities: No lower extremity edema. No Lacerations. No Rash Neuro: Oriented X 3. No motor deficit. No sensory deficit. Moving all extremities. No slurred speech. CN 2 through 12 grossly intact Psych: calm, cooperative, normal affect Course Course Course Narrative: -patient denies the possibility of being . All labs pending. Patient receiving IV fluids, Zofran and Toradol. -all of patient's labs and imaging pending. Medical Decision Making Medical Decision Making [facility] Narrative: My interpretation of labs, normal hematology chemistry, urinalysis positive for UTI. Comparing this urinalysis to previous microbiology reports, patient is sensitive to cephalosporins. -patient states that she has been getting frequent UTIs, seems to be related to sexual activity. Discussed with the patient that we will treat his UTI and then she can take prophylactic antibiotics. -also, patient may have enteritis. No antibiotics required for enteritis but she will be covered for UTI any ways. Differential Diagnosis Differential Diagnoses: The differential diagnosis associated with the presentation includes (Enteritis, UTI, pyelonephritis) Admission/Observation Consideration of admission/observation: Escalation of care including admission/observation considered (Given patient's initial presentation, admission was considered.) Lab Data [facility] Lab Attestation statement: I reviewed the patient's lab results. 09/19/24 04:21 09/19/24 04:21 Labs: Lab Results 09/19/24 09/19/24 09/19/24 Range/Units 04:21 04:21 04:21 WBC 6.7 (4.8-10.8) X10*3/uL RBC 5.12 (4.20-5.50) X10*6/uL Hgb 14.8 (12.0-16.0) g/dl Hct 41.7 (37.0-47.0) % MCV 81.4 (80.0-98.0) fL MCH 28.9 (27.0-33.0) pg MCHC 35.5 H (31.0-35.0) g/dl RDW 12.4 (11.0-16.0) % Plt Count 349 (160-400) X10*3/uL MPV 9.6 (9.4-12.3) fL Immature Gran % (Auto) 0.3 (0.0-0.4) % Neut % (Auto) 65.2 (45-73) % Lymph % (Auto) 23.6 (20-40) % [place] % (Auto) 6.2 (2-11) % Eos % (Auto) 4.6 H (0-4) % Baso % (Auto) 0.1 (0-2) % Lymph # (Auto) 1.6 (1.2-4.9) X10*3/uL [place] # (Auto) 0.4 (0.1-1.2) X10*3/uL Eos # (Auto) 0.3 (0.0-0.4) X10*3/uL Baso # (Auto) 0.0 (0.0-0.2) X10*3/uL Abs Immat Gran (auto) 0.02 (0.00-0.03) X10*3/uL Absolute Neuts (auto) 4.4 (2.0-8.3) x10*3/uL Absolute Nucleated RBC 0.000 (0.0-0.012) X10*3/uL Nucleated RBC % (auto) 0.0 (0.0-0.2) /100WBC Sodium Cancelled 138 Potassium Cancelled 4.3 Chloride Cancelled Carbon Dioxide Anion Gap BUN Creatinine Estim Creat Clear Calc Estimated GFR Random Glucose Calcium Lipase (8-78) U/L Beta HCG, Quant mIU/mL Urine Color Urine Appearance Urine pH (5.0-9.0) Ur Specific [place] (1.005-1.025) Urine Protein (Neg-Trace) mg/dL Urine Glucose (UA) (Negative) mg/dL Urine Ketones (Negative) mg/dL Urine Blood (Negative) Urine Nitrite (Negative) Ur Leukocyte Esterase (Negative) Urine RBC (0-2) /HPF Urine WBC (0-5) /HPF Ur Squamous Epith Cells (0-2) /HPF Urine Bacteria (None Seen) Hyaline Casts (0-2) /LPF 09/19/24 09/19/24 09/19/24 Range/Units 04:21 04:21 04:21 WBC (4.8-10.8) X10*3/uL RBC (4.20-5.50) X10*6/uL Hgb (12.0-16.0) g/dl Hct (37.0-47.0) % MCV (80.0-98.0) fL MCH (27.0-33.0) pg MCHC (31.0-35.0) g/dl RDW (11.0-16.0) % Plt Count (160-400) X10*3/uL MPV (9.4-12.3) fL Immature Gran % (Auto) (0.0-0.4) % Neut % (Auto) (45-73) % Lymph % (Auto) (20-40) % [place] % (Auto) (2-11) % Eos % (Auto) (0-4) % Baso % (Auto) (0-2) % Lymph # (Auto) (1.2-4.9) X10*3/uL [place] # (Auto) (0.1-1.2) X10*3/uL Eos # (Auto) (0.0-0.4) X10*3/uL Baso # (Auto) (0.0-0.2) X10*3/uL Abs Immat Gran (auto) (0.00-0.03) X10*3/uL Absolute Neuts (auto) (2.0-8.3) x10*3/uL Absolute Nucleated RBC (0.0-0.012) X10*3/uL Nucleated RBC % (auto) (0.0-0.2) /100WBC Sodium Potassium Chloride 115 H Carbon Dioxide Cancelled 12 L Anion Gap Cancelled 15 BUN Cancelled Creatinine Estim Creat Clear Calc Estimated GFR Random Glucose Calcium Lipase (8-78) U/L Beta HCG, Quant mIU/mL Urine Color Urine Appearance Urine pH (5.0-9.0) Ur Specific [place] (1.005-1.025) Urine Protein (Neg-Trace) mg/dL Urine Glucose (UA) (Negative) mg/dL Urine Ketones (Negative) mg/dL Urine Blood (Negative) Urine Nitrite (Negative) Ur Leukocyte Esterase (Negative) Urine RBC (0-2) /HPF Urine WBC (0-5) /HPF Ur Squamous Epith Cells (0-2) /HPF Urine Bacteria (None Seen) Hyaline Casts (0-2) /LPF 09/19/24 09/19/24 09/19/24 Range/Units 04:21 04:21 04:21 WBC (4.8-10.8) X10*3/uL RBC (4.20-5.50) X10*6/uL Hgb (12.0-16.0) g/dl Hct (37.0-47.0) % MCV (80.0-98.0) fL MCH (27.0-33.0) pg MCHC (31.0-35.0) g/dl RDW (11.0-16.0) % Plt Count (160-400) X10*3/uL MPV (9.4-12.3) fL Immature Gran % (Auto) (0.0-0.4) % Neut % (Auto) (45-73) % Lymph % (Auto) (20-40) % [place] % (Auto) (2-11) % Eos % (Auto) (0-4) % Baso % (Auto) (0-2) % Lymph # (Auto) (1.2-4.9) X10*3/uL [place] # (Auto) (0.1-1.2) X10*3/uL Eos # (Auto) (0.0-0.4) X10*3/uL Baso # (Auto) (0.0-0.2) X10*3/uL Abs Immat Gran (auto) (0.00-0.03) X10*3/uL Absolute Neuts (auto) (2.0-8.3) x10*3/uL Absolute Nucleated RBC (0.0-0.012) X10*3/uL Nucleated RBC % (auto) (0.0-0.2) /100WBC Sodium Potassium Chloride Carbon Dioxide Anion Gap BUN 14 Creatinine Cancelled 0.74 Estim Creat Clear Calc Cancelled 111.7 Estimated GFR Cancelled Random Glucose Calcium Lipase (8-78) U/L Beta HCG, Quant mIU/mL Urine Color Urine Appearance Urine pH (5.0-9.0) Ur Specific [place] (1.005-1.025) Urine Protein (Neg-Trace) mg/dL Urine Glucose (UA) (Negative) mg/dL Urine Ketones (Negative) mg/dL Urine Blood (Negative) Urine Nitrite (Negative) Ur Leukocyte Esterase (Negative) Urine RBC (0-2) /HPF Urine WBC (0-5) /HPF Ur Squamous Epith Cells (0-2) /HPF Urine Bacteria (None Seen) Hyaline Casts (0-2) /LPF 09/19/24 09/19/24 09/19/24 Range/Units 04:21 04:21 04:21 WBC (4.8-10.8) X10*3/uL RBC (4.20-5.50) X10*6/uL Hgb (12.0-16.0) g/dl Hct (37.0-47.0) % MCV (80.0-98.0) fL MCH (27.0-33.0) pg MCHC (31.0-35.0) g/dl RDW (11.0-16.0) % Plt Count (160-400) X10*3/uL MPV (9.4-12.3) fL Immature Gran % (Auto) (0.0-0.4) % Neut % (Auto) (45-73) % Lymph % (Auto) (20-40) % [place] % (Auto) (2-11) % Eos % (Auto) (0-4) % Baso % (Auto) (0-2) % Lymph # (Auto) (1.2-4.9) X10*3/uL [place] # (Auto) (0.1-1.2) X10*3/uL Eos # (Auto) (0.0-0.4) X10*3/uL Baso # (Auto) (0.0-0.2) X10*3/uL Abs Immat Gran (auto) (0.00-0.03) X10*3/uL Absolute Neuts (auto) (2.0-8.3) x10*3/uL Absolute Nucleated RBC (0.0-0.012) X10*3/uL Nucleated RBC % (auto) (0.0-0.2) /100WBC Sodium Potassium Chloride Carbon Dioxide Anion Gap BUN Creatinine Estim Creat Clear Calc Estimated GFR > 60 Random Glucose Cancelled 108 Calcium Cancelled 9.9 D Lipase 18 (8-78) U/L Beta HCG, Quant < 2 mIU/mL Urine Color Yellow Urine Appearance Clear Urine pH 5.5 (5.0-9.0) Ur Specific [place] 1.025 (1.005-1.025) Urine Protein Negative (Neg-Trace) mg/dL Urine Glucose (UA) Negative (Negative) mg/dL Urine Ketones Negative (Negative) mg/dL Urine Blood Negative (Negative) Urine Nitrite Negative (Negative) Ur Leukocyte Esterase Moderate (2+) H (Negative) Urine RBC 0-2 (0-2) /HPF Urine WBC 21-50 H (0-5) /HPF Ur Squamous Epith Cells 6-10 (0-2) /HPF Urine Bacteria Trace (None Seen) Hyaline Casts 0-2 (0-2) /LPF Independent Interpretation I performed an independent interpretation of an: CT Scan Radiology Impression Discussion of test interpretation with radiology: I have reviewed the radiologist's reading. Radiologist Impression: FINDINGS: LUNG BASES: The visualized lung bases are unremarkable. LIVER, GALLBLADDER, AND BILIARY TREE: The liver is normal in size, shape, and attenuation. No focal hepatic lesion or biliary ductal dilatation is present. The gallbladder is unremarkable with no evidence of radiopaque gallstones, gallbladder wall thickening, or obvious pericholecystic inflammatory changes. PANCREAS: Unremarkable. SPLEEN: Unremarkable. ADRENAL GLANDS: Unremarkable. KIDNEYS AND URETERS: The kidneys are normal in size, shape, and attenuation. There are scattered bilateral 1 to 2 mm renal calculi. There is no hydronephrosis. BLADDER: Unremarkable. GASTROINTESTINAL TRACT: There are fluid-filled distal small bowel loops and fluid within the right colon. The appendix is visualized and is within normal limits. ABDOMINAL WALL: No significant hernia is appreciated. LYMPH NODES: Normal. VASCULAR: Unremarkable. PELVIC VISCERA: Unremarkable. OSSEOUS STRUCTURES: Unremarkable. CT/CT abdomen pelvis wo IV con IMPRESSION: 1. Fluid-filled distal small bowel loops and fluid within the right colon. This may be seen with enteritis. 2. Bilateral 1 to 2 mm renal calculi. No hydronephrosis. Medications Administered Discontinued Medications Generic Name Dose Route Start Last Admin Trade Name Freq PRN Reason Stop Dose Admin Sodium Chloride 1,000 mls @ 999 mls/hr 09/19/24 04:27 09/19/24 04:33 Ns IVCONT 09/19/24 05:27 999 mls/hr .Q1H1M ONE Administration Ketorolac Tromethamine 30 mg 09/19/24 04:30 09/19/24 05:34 Ketorolac Tromethamine 30 Mg/Ml Vial IVPUSH 09/19/24 04:31 30 mg ONCE ONE Administration Morphine Sulfate 2 mg 09/19/24 05:04 09/19/24 05:34 Morphine Sulfate 2 Mg/Ml Cartridge IVPUSH 09/19/24 05:05 2 mg ONCE ONE Administration Protocol Ondansetron HCl 4 mg 09/19/24 04:22 09/19/24 04:24 Ondansetron Hcl 4 Mg/2 Ml Vial IVPUSH 09/19/24 04:23 4 mg ONCE ONE Administration Critical Care Time Critical Care Time Critical Care Time: Yes Total Critical Care Time: 60 Attestation: I have personally provided critical care time. Time includes review of lab data, radiology results, discussion with consultants, and monitoring for potential decompensation. Intervention performed as documented. Discharge Plan Discharge Clinical Impression: Enteritis, UTI (urinary tract infection) Patient Disposition: Home, Self-Care Instructions: Urinary Tract Infection in Women (ED), Enteritis (ED) Additional Instructions: Please follow-up with your primary care physician tomorrow. If you have any worsening or new symptoms, please return to the emergency room or call 911 Prescriptions: New cefuroxime axetil 250 mg tablet 250 mg PO BID Qty: 10 0RF nitrofurantoin monohyd/m-cryst [Macrobid] 100 mg capsule 100 mg PO ONCE Qty: 14 0RF Rx Instructions: must administer with a meal/food, take 1 capsule/tablet after sexual activity No Action sulfamethoxazole-trimethoprim [Bactrim DS] 800-160 mg tablet 1 tab PO BID 3 Days Qty: 6 0RF hydroxyzine HCl 25 mg tablet 25 mg PO Q4H PRN (Reason: anxiety) Qty: 30 0RF Rx Instructions: Not to exceed two doses daily buspirone 5 mg tablet 5 mg PO BID Qty: 60 1RF famotidine 40 mg tablet 40 mg PO BEDTIME Qty: 90 2RF Print Language: Serbian
[2024-09-19 04:29] LABS: MANUAL DIFF FLAG NO
[2024-09-19 04:30] LABS: Basophils Percent Auto 0.1 % (0-2); Eosinophils Absolute Auto 0.3 X10*3/uL (0.0-0.4); Eosinophils Percent Auto 4.6 % (0-4); Hematocrit 41.7 % (37.0-47.0); Hemoglobin 14.8 g/dl (12.0-16.0); Imm Gran Abs Auto 0.02 X10*3/uL (0.00-0.03); Imm Gran Pct Auto 0.3 % (0.0-0.4); Lymphocytes Absolute Auto 1.6 X10*3/uL (1.2-4.9); Lymphocytes Percent Auto 23.6 % (20-40); Mean Corpuscular HGB Conc 35.5 g/dl (31.0-35.0); Mean Corpuscular Hemoglobin 28.9 pg (27.0-33.0); Mean Corpuscular Volume 81.4 fL (80.0-98.0); Mean Platelet Volume 9.6 fL (9.4-12.3); Monocytes Absolute Auto 0.4 X10*3/uL (0.1-1.2); Monocytes Percent Auto 6.2 % (2-11); Neutrophils Absolute Auto 4.4 x10*3/uL (2.0-8.3); Neutrophils Percent Auto 65.2 % (45-73); Platelet Count 349 X10*3/uL (160-400); Red Blood Count 5.12 X10*6/uL (4.20-5.50); Red Cell Distribution Width 12.4 % (11.0-16.0); White Blood Count 6.7 X10*3/uL (4.8-10.8)
[2024-09-19] MEDS: 0.9 % Sodium Chloride 1,000 ML 999 ML IVCONT (04:33)
[2024-09-19 04:34] LABS: Appearance Urine Clear; Color Urine Yellow; Glucose Urine UA Negative (Negative); Leukocyte Esterase Urine Moderate (2+) (Negative); Nitrite Urine Negative (Negative); PH 5.5 (5.0-9.0); Specific Gravity - Urine 1.025 (1.005-1.025); UMIC TRIGGER UACC YES; Urine Blood Negative (Negative); Urine Ketones Negative (Negative); Urine Protein Negative (Neg-Trace)
[2024-09-19 04:39] LABS: Bacteria Urine Trace (None Seen); Hyaline Casts Urine 0-2 /LPF (0-2); RBC Urine 0-2 /HPF (0-2); UACC Culture Trigger YES; WBC Urine 21-50 /HPF (0-5)
[2024-09-19 05:12] LABS: Anion Gap 15 (12-20); Blood Urea Nitrogen 14 mg/dL (9-16); Calcium 9.9 mg/dL (8.4-10.2); Carbon Dioxide 12 mmol/L (22-29); Chloride 115 mmol/L (96-108); Creatinine Clr Calc Pharmacy 111.7; Estimated Glomerular Filt Rate > 60; Glucose Random 108 mg/dL (60-115); Lipase 18 U/L (8-78); Potassium 4.3 mmol/L (3.3-5.1); Sodium 138 mmol/L (135-145)
[2024-09-19 05:14] LABS: HCG Quantitative < 2 mIU/mL
[2024-09-19] MEDS: Ketorolac Tromethamine 30 MG/ML VIAL IVPUSH (05:34)
[2024-09-19] MEDS: Morphine Sulfate 2 MG/ML CARTRIDGE IVPUSH (05:34)
[2024-09-19] MEDS: cefuroxime axetiL 250 MG TABLET PO (07:55)
== END 2024-09-19 08:05 | disposition home or self-care (01) ==
PROVIDERS: Emergency Provider Emergency Medicine
DX: K52.9 Noninfective gastroenteritis and colitis, unspecified (principal); N39.0 Urinary tract infection, site not specified; Z87.442 Personal history of urinary calculi
CPT/HCPCS: 36415; 74176; 80048; 81001; 83690; 84702; 85025; 87086; 87147; 96361; 96374; 96375; 99284; 99285; J1885; J2270; J2405

== ENCOUNTER 2025-08-01 14:26 | Outpatient (AMB) | payer OTHER, SELFPAY ==
--- NOTE | 2025-08-01 14:29 | MHC.PC.OV ---
Vital Signs 08/01/25 14:33 08/01/25 15:04 08/01/25 15:05 Height 5 ft Weight 162 lb 6 oz BMI 31.7 BP 118/70 Blood Pressure Location Lt brachial Position Sitting Respiration 12 Pulse 72 88 Pulse Source Pulse Oximeter Auscultation Temp 97.2 F Temp Source Oral Pulse Oximetry (%) 99 100 Oxygen Delivery Method Room Air Room Air Intake Visit Reasons: Wheezing Intake Note: Patient c/o chest feeling heavy, and wheezing x 1 month Technician Chemical Cleaning Required: No Allergies No Known Allergies Allergy (Verified 08/01/25 14:42) Medication List - Last Reconciled 08/01/25 by Laura Crowder, ALLERGY AND IMMUNOLOGY CHIEF- buspirone 5 mg PO BID famotidine 40 mg PO BEDTIME hydroxyzine HCl 25 mg PO Q4H PRN Tobacco use date assessed: 08/01/25 Dental Screening Dental Screen Date: 08/01/25 Did you have a dental visit in the last 12 months?: Yes Did you have a dental problem in the last 6 months where you did not have access to dental care?: No Was dental information given to patient?: Patient has dentist HPI HPI Comments History of Present Illness Details 19-year-old female with GERD, obesity, anxiety, MDD, renal calculi, acne vulgaris, ADD, anemia, chronic low pain 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 Specialists Nephrology at [facility], cleared from routine fu. vehicle inspector Optho Here today w/ c/o wheezing that started 1 mo ago after her cat had kittens Chest feels heavy has nasal congestion, eyes feel swollen using cough drops, humidifier w/o relief Sx are affecting her sleep does not feel sick Denies fever, chills, chest pain, sore throat, ear pain Physical Exam General: Well developed, well nourished, in no acute distress. Appears stated age. Head: Normocephalic, atraumatic. Eyes: Pupils are equal, round and reactive to light and accommodation. Conjunctivae are clear. Vision grossly normal. Ears: trace fluid bilat Nares: clear drainage turbinates pink & edematous, no sinus tenderness Pharynx: WNL Lungs: Diffuse wheezing throughout before Albuterol updraft. After greatly improved airflow throughout, no wheezing. Sp02 100% Heart: Regular rate and rhythm. No murmurs, click, rubs or gallops are noted. Extremities: No clubbing, cyanosis nor edema is noted. Psych: Mood and affect appropriate Diagnostic results CXR pending Discussion Notes I discussed with the patient the likelihood of sx potentially triggered by allergy to the new kittens. I explained the need for a chest X-ray to rule out other causes. I highlighted the necessity of using an inhaled steroid (Cobivent) regularly in conjunction with a rescue inhaler for symptomatic relief. I also discussed initiation of Singulair (Montelukast) for better control of allergic symptoms. A follow-up appointment was scheduled in four weeks to reassess the condition and consider pulmonary function testing if necessary. I explained that the wooziness is likely due to better oxygenation post-treatment. Consent for the chest X-ray and new medication regimen was obtained. Patient was given time to ask questions. All questions were answered to their satisfaction. Assessment and Plan 1. Wheezing - Prescribe Cobivent and rescue inhaler; Chest X-ray to rule out other causes. 2. Allergic Rhinitis - Introduce Singulair for symptoms; Follow-up scheduled. 3. Suspected Respiratory Allergen Sensitivity - Discuss environmental modifications; Ongoing evaluation. Patient Instructions - Use Cobivent inhaler as directed: one puff four times a day. - Use the rescue inhaler when you have trouble breathing. - Rinse your mouth after using Cobyvent. - Try to avoid contact with cat dander. - Take Singulair at night before bed. - Get a chest X-ray as soon as you can. - Schedule a follow-up appointment in four weeks. Consent I obtained informed consent from the patient for a chest X-ray and the prescribed medication regimen. I explained the rationale, risks, and benefits of these treatments. The patient expressed understanding and agreed to proceed with the proposed plan. Patient was informed and verbally consented to the use of an ambient scribe for clinic note documentation during this visit. Total time spent caring for the patient today was 45 minutes. This includes time spent before the visit reviewing the chart, time spent during the visit, and time spent after the visit on documentation, reviewing laboratory results, diagnostic imaging, medications, performing a medically necessary evaluation, counseling on diagnoses, care coordination, ordering appropriate tests, ordering appropriate medications, review of tests performed by other providers, reporting test results with the patient, communication with other healthcare providers. 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 1. Little interest or pleasure in doing things: not at all 2. Feeling down, depressed, or hopeless: not at all 3. Trouble falling or staying asleep, or sleeping too much: not at all 4. Feeling tired or having little energy: not at all 5. Poor appetite or overeating: not at all 6. Feeling bad about yourself - or that you are a failure or have let yourself or your family down: not at all 7. Trouble concentrating on things, such as reading the newspaper or watching television: not at all 8. Moving or speaking so slowly that other people could have noticed. Or the opposite - being so fidgety or restless that you have been moving around a lot more than usual: not at all 9. Thoughts that you would be better off or of hurting yourself in some way: not at all Total score: 0 Depression Screening Interpretation: Negative Depression Screening Done: Yes 88632 - PHQ-9 Billing: Yes Source: Developed by Drs. Jorge Solares, Mis BJustin Maher and colleagues, with an educational jimbo from [employer] Thrive Questionnaire Date Thrive assessed: 08/01/25 I am a: Patient What is your living situation today?: I have a steady place to live Within the past 12 months, did the food you bought not last and you didn't have the money to get more?: Never true Within the past 12 months, did you worry whether your food would run out before you got money to buy more?: Never true Do you have trouble paying for medicines?: No Do you have trouble getting transportation to medical appointments?: No Do you have trouble paying your heating and electricity bill?: No Do you have trouble taking care of your child, family member or friend?: No Do you have trouble with day-to-day activities such as bathing, preparing meals, shopping, managing finances, etc.?: No Are you currently unemployed and looking for a job?: No Are you interested in more education?: No THRIVE Score: 0 ANALISA-7 AMB Questionnaire ANALISA-7 Date ANALISA - 7 assessed: 08/01/25 Feeling nervous, anxious, or on edge: 0 = Not at all Not being able to stop or control worryin = Not at all Worrying too much about different things: 0 = Not at all Trouble relaxin = Not at all Being so restless that it is hard to sit still: 0 = Not at all Becoming easily annoyed or irritable: 0 = Not at all Feeling afraid as if something awful might happen: 0 = Not at all Total ANALISA-7 score (0-4 normal; 5-9 mild; 10-14 moderate; 15-21 severe): 0 Source: Developed by Drs. Jorge Solares, Justin Medeiros and colleagues, with an educational jimbo from [employer] ANALISA-7 Assessment Billing ANALISA-7 Assessment Tool: ANALISA-7 Assessment 95366 Physical exam (Primary Care) Vital Signs: Last Vital Signs Temp 97.2 F 08/01/25 14:33 Pulse 72 08/01/25 14:33 Resp 12 08/01/25 14:33 BP 118/70 08/01/25 14:33 Pulse Ox 99 08/01/25 14:33 Oxygen Delivery Method Room Air 08/01/25 14:33 BMI result Body Mass Index 31.7 Tobacco/Smoking Status: Tobacco use Status Tobacco use date assessed 08/01/25 08/01/25 14:34 Patient Tobacco Use Status Never used Tobacco 08/01/25 14:34 e-Cigarette/Vaping Use Never Used 08/01/25 14:34 PHQ-9: PHQ-9 Score PHQ-9: Total score 0 08/01/25 14:34 Depression Screening Interpretation: Negative Thrive Assessment: Date of Thrive Assessment Date Thrive assessed 08/01/25 08/01/25 14:34 Office Procedures Nebulizer Treatment Nebulizer Treatment 60511-Cgxrsqeat/MDI RX initial, or Nebulizer Subsequent Treatment Nebulizer Treatment Nebulizer Treatment 52488-Xiocfdjrl/MDI RX initial, or Nebulizer Subsequent Treatment Office Meds albuterol sulfate 2.5 mg/3 mL (0.083 %) solution for nebulization Performing Provider: KENYA Beltrán [place] [facility] Administered by: KENYA Beltrán on 08/01/25 14:54 Dose Route Admin Location Dispensed Lot Number Expiration Date NDC Process Control Operator 2.5 mg inhalation OFFICE 3 mL [id number] 11/13/25 MYLAN Coding Level of Care Code Est Pt Level 5 (57036) Complex EM visit Add On G2211 Diagnoses Wheezing R06.2 CPT Codes Nebulizer Treatment - Nebulizer Treatment, initial or subsequent: 18520-Zlolihgja/MDI RX initial, or Nebulizer Subsequent Treatment ([id number]) Nebulizer Treatment - Nebulizer Treatment, initial or subsequent: 25651-Cjgdbcpil/MDI RX initial, or Nebulizer Subsequent Treatment ([id number]) Additional Codes ANALISA-7 Assessment Billing - ANALISA-7 Assessment Tool: ANALISA-7 Assessment 50279 ([id number]) PHQ-9 - 06562 - PHQ-9 Billing: Yes ([id number]) Assessment & Plan Assessment & Plan (1) Wheezing: Code(s): R06.2 - Wheezing Category: Medical Plan . Orders: Orders AMB Nebulizer Treatment Today R06.2 - Wheezing XR chest 2V Today R06.2 - Wheezing Medications: New ipratropium-albuterol 20-100 mcg/actuation (Combivent Respimat) space evenly during waking hours 1 puff inhalation QID 4 grams 0RF albuterol sulfate 90 mcg/actuation 2 puffs inhalation Q4-6H PRN 8.5 grams 0RF shortness of breath or wheezing 30 days montelukast (Singulair) 10 mg PO BEDTIME 30 tabs 2RF Discontinued cefuroxime axetil Discontinued Reason: Patient Completed Course 250 mg PO BID 10 tabs 0RF
[2025-08-01 14:33] VITALS: BP 118/70; PULSE 72; RESP 12; TEMP 36.2; O2SAT 99; BMI 31.7
[2025-08-01 15:04] VITALS: PULSE 88
[2025-08-01 15:05] VITALS: O2SAT 100
--- OUTSIDE RECORDS SUMMARY | 2025-08-01 16:15 | XMS_ITS ---
Author Name [facility] Organization Unknown History of Medication Use Medication Directions Dispensed Refills Start Date End Date Stat ondansetron (ZOFRAN) 4 MG tablet 10/22/2021 active Problems Problem Status Onset Date Problem Type Date of Resoluti on Source Bilateral nephrolithiasis active 2021-12-16 ProblemAct [facility] Encounters Encounter Type Encounter Reason Primary Diagnosis Location Date Ambulatory [facility] 01/14/2022 [facility]ulatory [facility] 12/17/2021 Ambulatory [facility] 11/23/2021 Care Team Organization Name Specialty Phone Email Start Date End Da te [facility] Keely Dooley Primary Care 01/15/2022 07/02/2024
--- OUTSIDE RECORDS SUMMARY | 2025-08-01 16:15 | XMS_ITS | Clinical Summary ---
Author Organization [facility] 's Address [address] [place], [place] [id number] Care Team Providers Care Police Records Clerk Name Role Phone Una Dooley Primary Care Provider Source Comments Please note that some or all of the patient's information could have additional privacy protections. State laws allow health care providers to render certain types of treatment to minors without parental consent. Please do not assume that this information can be shared solely by obtaining just the consent of the patient's parent/guardian. Please determine if all or part of the patient's care was rendered without parent/guardian involvement. And, if so, obtain the minor's consent prior to disclosure.[facility] Allergies No known active allergies Medications famotidine (PEPCID) 20 MG tablet 1 Active ibuprofen (MOTRIN) 600 MG tablet 1 Active ANTACID-ANTIGAS 200-200-20 mg/5 mL suspension 1 Active ondansetron (ZOFRAN) 4 MG tablet 1 Active etonogestreL (NEXPLANON) 68 mg by Subdermal route once Active omeprazole (PRILOSEC) 40 MG capsuleIndicati ons:Periumbilic al abdominal pain Take 1 capsule (40 mg) by mouth daily 30 capsule 1 2 Active Additional Information Patient not taking.Reported on 01/14/2022 Active Problems Problem Noted Date Diagnosed Date Bilateral nephrolithiasis 12/16/2021 Family History Medical History Relation Name Comments Anesthesia problems Father Diabetes Father Hypertension Father Nephrolithiasis Father Constipation Maternal Grandfather Anesthesia problems Mother Relation Name Status Comments Father Maternal Grandfather Mother Social History Tobacco Use Types Packs/Day Years Used Date Smoking Tobacco: Passive Smo ke Exposure - Never Smoker Smokeless Tobacco: Never Comments:dad smokes outside Other Needs Answer Date Recorded Anything else about your child you'd like help w ith? Not on file 07/29/2023 Share good news about positive changes: Not on f ile 07/29/2023 Comments No Sex and Gender Information Value Date Recorded Sex Assigned at Not on file Legal Sex Female 10:13 PM EST Gender Identity Not on file Sexual Orientation Not on file Last Filed Vital Signs Vital Sign Reading Time Taken Comments Blood Pressure 114/67 12/16/2021 1:50 PM EST Pulse 79 12/16/2021 1:50 PM EST Temperature - - Respiratory Rate - - Oxygen Saturation - - Inhaled Oxygen Concentration - - Weight 70.5 kg (155 lb 6.8 oz) 12/16/2021 1:50 P M EST Height 153.4 cm (5' 0.39 ) 12/16/2021 1:50 PM ES T Body Mass Index 29.96 12/16/2021 1:50 PM EST Plan of Treatment Health Maintenance Due Date Last Done Comments DTaP/TDAP/TD VACCINES (1 - Tdap) 2011 ADOLESCENT HIV SCREENING 2017 COVID-19 Vaccine (2023-2 5 season) 2025 INFLUENZA (#1) 2025 NIRSEVIMAB VACCINES UNDER 8 MONTHS Aged Out No longer eligible based on patient's age to complete this topic Insurance [facility] [employer] Care Teams Police Records Clerk Relationship Specialty Start Date End Date Una Dooley PA [address] [place] [address] [place] [address] PCP - General Physician Financial Reporting Specialist 11/10/21
== END 2025-08-01 15:11 | disposition home or self-care (01) ==
LOC: HO.HMCFM 14:26
PROVIDERS: PCP Nurse Practitioner Family; Visit Provider Nurse Practitioner Family
DX: R06.2 Wheezing (principal)

== ENCOUNTER 2025-08-01 14:26 | Outpatient (REF) | payer SELFPAY ==
--- NOTE | ~2025-08-01 | XR_ITS ---
EXAMINATION: XR CHEST 2 VIEWS HISTORY: R06.2 - Wheezing COMPARISON: There are no prior studies available for comparison. FINDINGS: PA and lateral views of the chest are submitted. The lungs are expanded and clear. There is no pleural effusion, pneumothorax, or pulmonary vascular congestion. The heart is normal in size. The bones are intact. XR/XR chest 2V IMPRESSION: Normal examination of the chest. Electronically signed by: Jorge Dykes MD 08/01/2025 03:58 PM EDT
== END 2025-08-01 14:27 | disposition home or self-care (01) ==
LOC: HO.HMGCX 14:26
PROVIDERS: PCP Nurse Practitioner Family; Visit Provider Nurse Practitioner Family
DX: R06.2 Wheezing (principal)
CPT/HCPCS: 71046; 94640; 96127; 99212

== ENCOUNTER → 2025-08-01 15:43 | Outpatient (BNV) | payer SELFPAY | PROVIDERS: PCP Nurse Practitioner Family; Visit Provider Radiology Diagnostic Radiology | DX: R06.2 Wheezing (principal) | CPT/HCPCS: 71046 ==

== ENCOUNTER 2025-08-13 13:23 | Emergency (ER) | payer SELFPAY ==
--- NOTE | 2025-08-13 13:25 | ECG_ITS ---
Test Reason : CHEST PAIN Blood Pressure : */* mmHG Vent. Rate : 97 BPM Atrial Rate : 97 BPM P-R Int : 128 ms QRS Dur : 88 ms QT Int : 338 ms P-R-T Axes : 68 71 -54 degrees QTcB Int : 429 ms Normal sinus rhythm with sinus arrhythmia T wave abnormality, consider inferior ischemia Abnormal ECG When compared with ECG of 06-Mar-2024 22:53, T wave inversion more evident in Inferior leads Nonspecific T wave abnormality now evident in Lateral leads Referred By: Generic ED Physician Electronically Signed By: JACQUIE DIXON
[2025-08-13 14:15] VITALS: BP 109/73; PULSE 74; RESP 18; TEMP 36.8; O2SAT 98; BMI 30.2
[2025-08-13] MEDS: Albuterol Sulfate 90 MCG 8 GM INHALER 12 PUFF INHALE (14:52)
[2025-08-13 14:54] VITALS: PULSE 83; RESP 26; O2SAT 97
[2025-08-13 14:55] LABS: COVID-19 Test Negative (Negative); IDNOW Serial# 16C4AD1C; IDNOW Serial# 6674DD1D; Influenza B2 Negative (Negative)
--- OUTSIDE RECORDS SUMMARY | 2025-08-13 17:46 | XMS_ITS | Clinical Summary ---
Author Organization [facility] 's Address [address] [place], [place] [id number] Care Team Providers Care Director Of Community Life Name Role Phone Una Dooley Primary Care [...] so, obtain the minor's consent prior to disclosure.[facility] Allergies No known active allergies Medications [...] patient's age to complete this topic Insurance [facility] [employer] Care Teams Director Of Community Life Relationship Specialty Start Date End Date Una Dooley PA [address] [place] [address] [place] [address] PCP - General Physician Construction Quality Control Manager 11/10/21
== END 2025-08-13 18:08 | disposition left against medical advice (07) ==
PROVIDERS: Physician Assistant Medical; Emergency Provider Emergency Medicine; PCP Nurse Practitioner Family
DX: R07.9 Chest pain, unspecified (principal); R06.02 Shortness of breath; I49.9 Cardiac arrhythmia, unspecified; Z03.818 Encounter for observation for suspected exposure to other biological agents ruled out; Z53.29 Procedure and treatment not carried out because of patient's decision for other reasons
CPT/HCPCS: 87502; 87635; 93005; 94640; 99281; 99284

== ENCOUNTER → 2025-08-13 13:25 | Outpatient (BNV) | payer SELFPAY | PROVIDERS: Emergency Provider Emergency Medicine; PCP Nurse Practitioner Family; Visit Provider Internal Medicine | DX: I49.9 Cardiac arrhythmia, unspecified (principal) | CPT/HCPCS: 93010 ==